=== PATIENT | female | born 1960 ===

== ENCOUNTER 2017-12-08 20:00 | Inpatient (IN) | payer OTHER ==
[2017-12-08] MEDS ORDERED: Sodium Chloride 0.9% 1,000 ML IV SCH (20:45)
--- NOTE | 2017-12-08 20:46 | ED PDOC ---
HPI: General Adult Time Seen by Provider: 12/08/17 20:24 Chief Complaint (Nursing): Lower Extremity Problem/Injury Chief Complaint (Provider): CP, LLE pain, facial droop Additional Complaint(s): Pt presents with multiples complaints: LLE pain and swelling X 2 days, no recent travel. Also c/o L sided chest pressure X 3 days, no radiation, no SOB. Also reports R facial droop last week X 2 days that resolved on its own, did not seek medical attention at that time. Pt recently had Eliquis (for which she took s/p RI) discontinued by PMD. Denies fever, palpitations. NIHSS Stroke Scale - Date/Time Evaluation Performed Date Performed: 12/08/17 Time Performed: 20:35 When Was NIHSS Performed: Baseline - How Severe is the Stroke Level of Consciousness: 0=Alert LOC to Questions: 0=Both comments correct LOC to commands: 0=Obeys both correctly Best Gaze: 0=Normal Visual: 0=No visual loss Facial: 0=Normal Motor Arm - Left: 0=No drift Motor Arm - Right: 0=No drift Motor Leg - Left: 0=No drift Motor Leg - Right: 0=No drift Limb Ataxia: 0=Absent Sensory: 0=Normal Best Language: 0=No aphasia Dysarthia: 0=Normal articulation Extinction & Inattention (Neglect): 0=Normal, no object Score: 0 rTPA Inclusion/Exclusion - Refusal of Treatment Patient Refused Treatment: No - Inclusion Criteria for Altepase Patient is 18 years or Older: Yes The Clinical Diagnosis of Ischemic Stroke That is Causing a Potentially Disabling Neurological Deficit: No Time of Onset is Well Established to be Less Than 270 Minute Before Treatment Would Begin: No Risk/Benefit Discussed With Patient/Family Member Present: No Past Medical History Reviewed: Nursing Documentation, Vital Signs Vital Signs: Last Vital Signs Temp 98.6 F 12/10/17 16:00 Pulse 94 H 12/10/17 16:00 Resp 12 12/10/17 16:00 BP 137/94 H 12/10/17 16:00 Pulse Ox 100 12/10/17 16:00 - Medical History PMH: CAD, HTN, Osteoporosis - Surgical History Surgical History: Hernia Repair - Family History Family History: States: Unknown Family Hx - Social History Current smoker - smoking cessation education provided: No Alcohol: None - Immunization History Hx Tetanus Toxoid Vaccination: Yes (2013) Hx Influenza Vaccination: No Hx Pneumococcal Vaccination: No - Home Medications Home Medications: Ambulatory Orders Medication Instructions Recorded Metoprolol Tartrate [Lopressor] 75 mg PO DAILY 12/08/17 Simvastatin [Zocor] 20 mg PO DAILY 12/08/17 - Allergies Allergies/Adverse Reactions: Allergies Allergy/AdvReac Type Severity Reaction Status Date / Time No Known Allergies Allergy Verified 12/08/17 20:06 Review of Systems Constitutional: Negative for: Fever, Chills Eyes: Negative for: Vision Change Cardiovascular: Positive for: Chest Pain. Negative for: Palpitations Respiratory: Negative for: Cough, Shortness of Breath Gastrointestinal: Negative for: Nausea, Vomiting, Abdominal Pain, Diarrhea Genitourinary Female: Negative for: Dysuria, Hematuria Musculoskeletal: Positive for: Leg Pain. Negative for: Back Pain Skin: Negative for: Rash, Lesions Neurological: Negative for: Weakness, Numbness, Incoordination, Change in Speech , Altered Mental Status, Headache, Dizziness Physical Exam - Reviewed Nursing Documentation Reviewed: Yes Vital Signs Reviewed: Yes - Physical Exam Appears: Positive for: Well, No Acute Distress Head Exam: Positive for: ATRAUMATIC, NORMAL INSPECTION Skin: Positive for: Normal Color, Warm, Dry Eye Exam: Positive for: Normal appearance, EOMI, PERRL Cardiovascular/Chest: Positive for: Regular Rate, Rhythm Respiratory: Positive for: Normal Breath Sounds. Negative for: Rales, Rhonchi, Wheezing Gastrointestinal/Abdominal: Positive for: Normal Exam Extremity: Positive for: Normal ROM, Tenderness (LLE), Calf Tenderness, Capillary Refill (<2 sec), Swelling (LLE). Negative for: Deformity Neurologic/Psych: Positive for: Alert, manager transplant II-XII, Oriented. Negative for: Motor/Sensory Deficits, Aphasia, Facial Droop - Laboratory Results Result Diagrams: 12/10/17 04:40 12/10/17 04:40 - ECG O2 Sat by Pulse Oximetry: 100 - Critical Care Total Time (In Min): 60 Medical Decision Making Medical Decision Makin yo female with CP, resolved R facial droop and LLE swelling and pain. - labs - EKG - CXR - CT head - Duplex ultrasound - Morphine Accession No. : [id number] Patient Name / ID : ESTHER VEGA / [id number] Exam Date : 12/08/2017 21:07:54 ( Approved ) Study Comment : Sex / Age : Creator : anabelle clau Dictator : Mindy Mancia MD Missile Inspector Preflight : Wire Roller : Mindy Mancia MD Approver2 : Report Date : 12/08/2017 21:17:21 My Comment : HISTORY: Chest pain COMPARISON: No prior. FINDINGS: LUNGS: The lungs are well inflated and clear. PLEURA: No significant pleural effusion identified, no pneumothorax apparent. CARDIOVASCULAR: The heart is normal in size. OSSEOUS STRUCTURES: No significant abnormalities. VISUALIZED UPPER ABDOMEN: Normal. OTHER FINDINGS: None. IMPRESSION: No active pulmonary disease. Accession No. : [id number] Patient Name / ID : ESTHER VEGA / [id number] Exam Date : 12/08/2017 21:23:47 ( Approved ) Study Comment : Sex / Age : Creator : ERIKA REYES MD Dictator : Missile Inspector Preflight : Wire Roller : ERIKA REYES MD Approver2 : Report Date : 12/08/2017 22:14:00 My Comment : [facility] Division of Radiology [address] [place] [address] Tel. no. Patient Name: GARY SANTANA Pt. Address: [address] [place] [address] Rec #: [id number] [place] [address]: Payton RUVALCABA,Johana Maddox Pt CELL Order Location: APPLE : 1960 Female Age: 57 Order #: [id number] Reason for exam: R facial droop [address] Scan HEAD W/O CONTRAST Exam Date: 12/08/17 This imaging exam was performed at [facility] EXAM: CT Head Without Intravenous Contrast CLINICAL HISTORY: 57 years old, female; Signs and symptoms; Other: Rt facial droop; Additional info: R facial droop 6 days ago TECHNIQUE: Axial computed tomography images of the head/brain without intravenous contrast. All CT scans at this facility use one or more dose reduction techniques, viz.: automated exposure control; ma/kV adjustment per patient size (including targeted exams where dose is matched to indication; i.e. head); or iterative reconstruction technique. Coronal and sagittal reformatted images were created and reviewed. COMPARISON: CT - HEAD W/O CONTRAST 2015-03-29 16:07 FINDINGS: Brain: No hemorrhage. No significant white matter disease. No edema. Ventricles: No hydrocephalus. Bones: Skull is intact. Sinuses: No acute sinusitis. Mastoid air cells: No mastoid effusion. IMPRESSION: No CT evidence of acute intracranial abnormality. Correlate clinically. Followup as warranted. Dictated By: Erika Reyes MD Dictated Date/Time: 12/08/172213 Signed By: Erika Reyes Date Signed: 2213 Transcribed By: MARY Transcribe Date/Time : 12/08/172213 CHERYL/NEAL Accession No. : [id number] Patient Name / ID : ESTHER VEGA / [id number] Exam Date : 12/08/2017 21:29:11 ( Approved ) Study Comment : Sex / Age : F / 57Y Creator : ERIKA REYES MD Dictator : Missile Inspector Preflight : Wire Roller : ERIKA REYES MD Approver2 : Report Date : 12/08/2017 22:08:00 My Comment : [facility] Division of Radiology [address] [place] [address] Tel. no. Patient Name: GARY SANTANA Pt. Address: [address] [place] [address] Rec #: [id number] [place] [address]: Johana Cain MD Pt CELL Order Location: [facility] : 1960 Female Age: 57 Order #: [id number] Reason for exam: LLE swelling/pain Ultrasound DUPLEX LOWER EXTRM VEIN LEFT Exam Date: 12/08/17 This imaging exam was performed at [facility] ADDENDUM Addendum created by Erika Reyes MD on 12/08/2017 10:33:28 PM EDT Spoke with Johana Medina on 12/08/2017 10:27 PM EDT. Initial report created on 12/08/2017 10:08:24 PM EDT EXAM: US Duplex Left Lower Extremity Veins CLINICAL HISTORY: 57 years old, female; Pain; Leg, lower; Left; Additional info: Lle swelling/pain TECHNIQUE: Real-time duplex ultrasound scan of the left lower extremity veins integrating B-mode two-dimensional vascular structure, Doppler spectral analysis, color flow Doppler imaging and compression. COMPARISON: No relevant prior studies available. FINDINGS: Deep veins: No DVT in the visualized common femoral or femoral veins. Thrombus visualized in the popliteal vein which is noncompressible. No color or Doppler flow demonstrated in the popliteal and posterior tibial veins. IMPRESSION: Positive left deep venous thrombosis. Addendum Dictated By: Erika Reyes Addendum Dictated Date Time:12/08/17 Addendum Signed by:Erika Reyes Addendum signed Date Time: 12/08/172232 Addendum Transcribed By: MARY Addendum Transcribed Date Time: 12/08/17 LUIS MD/NEAL EXAM: US Duplex Left Lower Extremity Veins CLINICAL HISTORY: 57 years old, female; Pain; Leg, lower; Left; Additional info: Lle swelling/pain TECHNIQUE: Real-time duplex ultrasound scan of the left lower extremity veins integrating B-mode two-dimensional vascular structure, Doppler spectral analysis, color flow Doppler imaging and compression. COMPARISON: No relevant prior studies available. FINDINGS: Deep veins: No DVT in the visualized common femoral or femoral veins. Thrombus visualized in the popliteal vein which is noncompressible. No color or Doppler flow demonstrated in the popliteal and posterior tibial veins. IMPRESSION: Positive left deep venous thrombosis. Dictated By: Erika Reyes MD Dictated Date/Time: 12/08/172207 Signed By: Erika Reyes Date Signed: 2207 Transcribed By: MARY Transcribe Date/Time : 12/08/172207 CHERYL/NEAL Accession No. : [id number] Patient Name / ID : ESTHER VEGA / [id number] Exam Date : 12/08/2017 22:19:44 ( Approved ) Study Comment : Sex / Age : F / 57Y Creator : JADE MCDOWELL Dictator : Missile Inspector Preflight : Wire Roller : JADE MCDOWELL Approver2 : Report Date : 12/08/2017 23:06:00 My Comment : [facility] Division of Radiology [address] [place] [address] Tel. no. Patient Name: GARY SANTANA Pt. Address: [address] [place] [address] Rec #: [id number] [place] [address]: Johana Cain MD Pt CELL Order Location: [facility] : 1960 Female Age: 57 Order #: [id number] Reason for exam: CP CT Scan ANGIO CHEST PE PROTOCOL Exam Date: 12/08/17 This imaging exam was performed at [facility] ADDENDUM Addendum created by Jade Mcdowell MD on 12/08/2017 11:20:24 PM EDT THIS REPORT CONTAINS FINDINGS THAT MAY BE CRITICAL TO PATIENT CARE. The findings were verbally communicaated via telephone conference with Johana Cain at 11:20 PM EDT on 12/08/2017. The findings were acknowledged and understood. Initial report created on 12/08/2017 11:06:45 PM EDT EXAM: CT Angiography Chest With Intravenous Contrast CLINICAL HISTORY: 57 years old, female; Pain; Chest pain; Type not specified; Additional info: Cp TECHNIQUE: Axial computed tomographic angiography images of the chest with intravenous contrast using pulmonary embolism protocol. All CT scans at this facility use one or more dose reduction techniques, viz.: automated exposure control; ma/kV adjustment per patient size (including targeted exams where dose is matched to indication; i.e. head); or iterative reconstruction technique. MIP reconstructed images were created and reviewed. Coronal and sagittal reformatted images were created and reviewed. CONTRAST: 90 mL of [id number] administered intravenously. COMPARISON: No relevant prior studies available. FINDINGS: Pulmonary arteries: There are filling defects in the bilateral upper and lower lobe pulmonary arteries consistent with pulmonary emboli. Aorta: No acute findings. No thoracic aortic aneurysm. Lungs: There is minimal bibasilar atelectasis or fibrosis. Mild fibrotic changes in the lung apices. No focal consolidation. Pleural space: Unremarkable. No significant effusion. No pneumothorax. Heart: Unremarkable. No cardiomegaly. No significant pericardial effusion. No evidence of RV dysfunction. Bones/joints: Degenerative changes in the spine. No acute fracture. No dislocation. Soft tissues: Calcified bilateral breast implants. Lymph nodes: Unremarkable. No enlarged lymph nodes. IMPRESSION: Bilateral pulmonary emboli. Addendum Dictated By: Jade Mcdowell MD Addendum Dictated Date Time:12/08/17 Addendum Signed by:Jade Mcdowell MD Addendum signed Date Time: 12/08/172319 Addendum Transcribed By: MARY Addendum Transcribed Date Time: 12/08/17 RHONDA/NEAL EXAM: CT Angiography Chest With Intravenous Contrast CLINICAL HISTORY: 57 years old, female; Pain; Chest pain; Type not specified; Additional info: Cp TECHNIQUE: Axial computed tomographic angiography images of the chest with intravenous contrast using pulmonary embolism protocol. All CT scans at this facility use one or more dose reduction techniques, viz.: automated exposure control; ma/kV adjustment per patient size (including targeted exams where dose is matched to indication; i.e. head); or iterative reconstruction technique. MIP reconstructed images were created and reviewed. Coronal and sagittal reformatted images were created and reviewed. CONTRAST: 90 mL of [id number] administered intravenously. COMPARISON: No relevant prior studies available. FINDINGS: Pulmonary arteries: There are filling defects in the bilateral upper and lower lobe pulmonary arteries consistent with pulmonary emboli. Aorta: No acute findings. No thoracic aortic aneurysm. Lungs: There is minimal bibasilar atelectasis or fibrosis. Mild fibrotic changes in the lung apices. No focal consolidation. Pleural space: Unremarkable. No significant effusion. No pneumothorax. Heart: Unremarkable. No cardiomegaly. No significant pericardial effusion. No evidence of RV dysfunction. Bones/joints: Degenerative changes in the spine. No acute fracture. No dislocation. Soft tissues: Calcified bilateral breast implants. Lymph nodes: Unremarkable. No enlarged lymph nodes. IMPRESSION: Bilateral pulmonary emboli. Dictated By: Jade Mcdowell MD Dictated Date/Time: 12/08/172305 Signed By: Jade Cleary MD Date Signed: 2305 Transcribed By: MARY Transcribe Date/Time : 12/08/172305 RHONDA/NEAL Disposition - Clinical Impression Clinical Impression: Bilateral pulmonary embolism, DVT (deep venous thrombosis), TIA (transient ischemic attack) - Disposition Disposition Time: 23:22 Condition: SERIOUS - Pt Status Changed To: Hospital Disposition Of: Inpatient - Admit Certification Admit to Inpatient:: After my assessment, the patient will require hospitalization for at least two midnights. This is because of the severity of symptoms shown, intensity of services needed, and/or the medical risk in this patient being treated as an outpatient. - POA Present On Arrival: Deep Vein Thrombosis / PE
[2017-12-08 20:56] LABS: BASO # 0.1 K/uL (0.0-0.2); BASO % 0.8 % (0.0-2.0); EOS # 0.3 K/uL (0.0-0.7); EOS % 3.9 % (0.0-4.0); HEMOGLOBIN 13.9 g/dL (12.0-16.0); LYMPH # 3.1 K/uL (1.0-4.3); LYMPH % 45.2 % (20.0-40.0); MEAN CORPUSCULAR HEMOGLOBIN 32.2 pg (27.0-31.0); MEAN CORPUSCULAR HGB CONC 34.3 g/dL (33.0-37.0); MEAN PLATELET VOLUME 7.7 fl (7.2-11.7); MONO # 0.6 K/uL (0.0-0.8); MONO % 8.9 % (0.0-10.0); NEUT # 2.8 K/uL (1.8-7.0); NEUT % 41.2 % (50.0-75.0); NRBC % 0.3 % (0.0-0.0); RBC 4.32 Mil/uL (3.80-5.20); RED CELL DISTRIBUTION WIDTH 13.4 % (11.5-14.5); WHITE BLOOD COUNT 6.9 K/uL (4.8-10.8)
[2017-12-08 21:06] LABS: ALB/GLOB RATIO 1.2 (1.0-2.1); ALT/SGPT 38 U/L (9-52); AST/SGOT 25 U/L (14-36); BLOOD UREA NITROGEN 20 mg/dl (7-17); CALCIUM 9.4 mg/dL (8.4-10.2); GFR AFRICAN-AMERICAN > 60; GFR NON-AFRICAN AMERICAN > 60; HDL CHOLESTEROL 56 MG/DL (30-70)
[2017-12-08 21:13] LABS: PROTHROMBIN TIME 10.9 Seconds (9.8-13.1)
[2017-12-08 21:14] LABS: PARTIAL THROMBOPLASTIN TIME 27.6 Seconds (25.6-37.1)
[2017-12-08 21:18] LABS: LDL CHOLESTEROL 99 mg/dL (0-129)
[2017-12-08 21:29] LABS: SQUAMOUS EPITHIAL 1 /hpf (0-5); URINE BILIRUBIN NEGATIVE (NEGATIVE); URINE BLOOD NEGATIVE (NEGATIVE); URINE CLARITY CLEAR (Clear); URINE COLOR STRAW (YELLOW); URINE GLUCOSE (UA) NEG (Normal); URINE LEUKOCYTE ESTERASE NEG Leu/uL (Negative); URINE PROTEIN NEGATIVE (NEGATIVE); URINE UROBILINOGEN 0.2-1.0 mg/dL (0.2-1.0)
[2017-12-08] MEDS ORDERED: Iodixanol 320 MG/ML 100 ML BOTTLE IV ONE (22:06)
[2017-12-08] MEDS ORDERED: Sodium Chloride 0.9% 50 ML IV ONE (22:06)
--- NOTE | 2017-12-08 22:08 | US ---
EXAM: US Duplex Left Lower Extremity Veins CLINICAL HISTORY: 57 years old, female; Pain; Leg, lower; Left; Additional info: Lle swelling/pain TECHNIQUE: Real-time duplex ultrasound scan of the left lower extremity veins integrating B-mode two-dimensional vascular structure, Doppler spectral analysis, color flow Doppler imaging and compression. COMPARISON: No relevant prior studies available. FINDINGS: Deep veins: No DVT in the visualized common femoral or femoral veins. Thrombus visualized in the popliteal vein which is noncompressible. No color or Doppler flow demonstrated in the popliteal and posterior tibial veins. IMPRESSION: Positive left deep venous thrombosis.
--- NOTE | 2017-12-08 22:15 | CT ---
EXAM: CT Head Without Intravenous Contrast CLINICAL HISTORY: 57 years old, female; Signs and symptoms; Other: Rt facial droop; Additional info: R facial droop 6 days ago TECHNIQUE: Axial computed tomography images of the head/brain without intravenous contrast. All CT scans at this facility use one or more dose reduction techniques, viz.: automated exposure control; ma/kV adjustment per patient size (including targeted exams where dose is matched to indication; i.e. head); or iterative reconstruction technique. Coronal and sagittal reformatted images were created and reviewed. COMPARISON: CT - HEAD W/O CONTRAST 2015-03-29 16:07 FINDINGS: Brain: No hemorrhage. No significant white matter disease. No edema. Ventricles: No hydrocephalus. Bones: Skull is intact. Sinuses: No acute sinusitis. Mastoid air cells: No mastoid effusion. IMPRESSION: No CT evidence of acute intracranial abnormality. Correlate clinically. Followup as warranted.
--- NOTE | 2017-12-08 23:06 | CT ---
EXAM: CT Angiography Chest With Intravenous Contrast CLINICAL HISTORY: 57 years old, female; Pain; Chest pain; Type not specified; Additional info: Cp TECHNIQUE: Axial computed tomographic angiography images of the chest with intravenous contrast using pulmonary embolism protocol. All CT scans at this facility use one or more dose reduction techniques, viz.: automated exposure control; ma/kV adjustment per patient size (including targeted exams where dose is matched to indication; i.e. head); or iterative reconstruction technique. MIP reconstructed images were created and reviewed. Coronal and sagittal reformatted images were created and reviewed. CONTRAST: 90 mL of [id number] administered intravenously. COMPARISON: No relevant prior studies available. FINDINGS: Pulmonary arteries: There are filling defects in the bilateral upper and lower lobe pulmonary arteries consistent with pulmonary emboli. Aorta: No acute findings. No thoracic aortic aneurysm. Lungs: There is minimal bibasilar atelectasis or fibrosis. Mild fibrotic changes in the lung apices. No focal consolidation. Pleural space: Unremarkable. No significant effusion. No pneumothorax. Heart: Unremarkable. No cardiomegaly. No significant pericardial effusion. No evidence of RV dysfunction. Bones/joints: Degenerative changes in the spine. No acute fracture. No dislocation. Soft tissues: Calcified bilateral breast implants. Lymph nodes: Unremarkable. No enlarged lymph nodes. IMPRESSION: Bilateral pulmonary emboli.
--- NOTE | 2017-12-08 23:44 | CP.PCM.CON ---
History of Present Illness - History of Present Illness History of Present Illness: Attending: Kerwin Mills MD PMD: Ada Randhawa MD Reason for consult: Critical Care Management Chief Complaint: Left lower extremity pain/ Chest pain /Dizziness The patient was seen and examined in the ED with her daughter present HPI: The hx is obtained from the patient and after review of the medical records. She is a 57 years old female with hx of HTN, DVT of left lower extremity October 2016 and UT in September 2016. She stopped taking Eliquis one month ago. She comes with 4 days of persisting dizziness and pain to the medial left upper thigh with 2 days of worsening of the pain and swelling of the posterior left thigh. She also referred 3-4 days of mid sternal chest pain with SOB no radiation nor relation with exertion . She refers right facial weakness with dysarthria 2 weeks ago which resolved after 2 days. No weakness to the extremities. Here in the ED her NIHSS was zero. 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 absent: Anorexia, Chills, Fatigue, Fever - EENT Eyes: Requires Corrective Lenses. absent: Floaters, Itchy Eyes, Photophobia, Sees Flashes Ears: absent: Decreased Hearing, Ear Discharge, Ear Pain, Tinnitus Nose/Mouth/Throat: absent: Epistaxis, Nasal Congestion, Nasal Discharge, Sinus Pain, Sinus Pressure - Cardiovascular Cardiovascular: Chest Pain, Dyspnea Additional comments: left leg swelling - Respiratory Respiratory: Dyspnea. absent: Cough, Wheezing, Stridor, Chest Congestion - Gastrointestinal Gastrointestinal: absent: Abdominal Pain, Constipation, Diarrhea, Nausea, Vomiting - Genitourinary Genitourinary: Urinary Frequency. absent: Dysuria, Flank Pain - Musculoskeletal Musculoskeletal: Arthralgias. absent: Back Pain, Muscle Weakness - Integumentary Integumentary: Swelling. absent: Pruritus, Rash, Skin Ulcer, Sores, Striae - Neurological Neurological: Dizziness, Headaches. absent: Confusion, Focal Weakness, Weakness - Psychiatric Psychiatric: Anxiety, Depression. absent: Panic Attacks - Endocrine Endocrine: absent: Palpitations, Polydipsia, Polyphagia, Polyuria - Hematologic/Lymphatic Hematologic: absent: Easy Bleeding, Easy Bruising Past Patient History - Past Medical History & Family History Past Medical History?: Yes - Past Social History Smoking Status: Heavy Smoker > 10 Cigarettes Daily Chewing Tobacco Use: No Cigar Use: No Alcohol: Occasional Home Situation {Lives}: With Family - CARDIAC Hx Hypercholesterolemia: Yes Hx Hypertension: Yes - PULMONARY Hx Respiratory Disorders: No - NEUROLOGICAL Hx Neurological Disorder: No - RENAL Hx Chronic Kidney Disease: No - ENDOCRINE/METABOLIC Hx Endocrine Disorders: No - HEMATOLOGICAL/ONCOLOGICAL Other/Comment: Left leg DVT - INTEGUMENTARY Hx Cellulitis: Yes (2013 s/p fall) - MUSCULOSKELETAL/RHEUMATOLOGICAL Hx Back Pain: Yes Hx Osteoporosis: Yes - GASTROINTESTINAL Hx Gastrointestinal Disorders: No - GENITOURINARY/GYNECOLOGICAL Hx Genitourinary Disorders: No - PSYCHIATRIC Hx Anxiety: Yes Hx Depression: Yes Hx Substance Use: No - SURGICAL HISTORY Hx Herniorrhaphy: Yes (left Hernia repair) Hx Hysterectomy: Yes Other/Comment: bilateral breast implant - ANESTHESIA Hx Anesthesia: Yes Hx Anesthesia Reactions: No Meds Allergies/Adverse Reactions: Allergies Allergy/AdvReac Type Severity Reaction Status Date / Time No Known Allergies Allergy Verified 12/08/17 20:06 - Medications Medications: Current Medications Sodium Chloride (Sodium Chloride 0.9%) 1,000 mls @ 100 mls/hr IV .Q10H [facility] Last Admin: 12/08/17 20:58 Dose: 100 mls/hr Heparin Sodium/Dextrose (Heparin 25,000 Units/250ml In D5w) 25,000 units in 250 mls @ 14 mls/hr IV .[id number] [facility] PRN Reason: Protocol Physical Exam - Constitutional Appears: No Acute Distress - Head Exam Head Exam: ATRAUMATIC, NORMAL INSPECTION, NORMOCEPHALIC - Eye Exam Eye Exam: EOMI, Normal appearance Pupil Exam: NORMAL ACCOMODATION, PERRL - ENT Exam ENT Exam: Mucous Membranes Moist, Normal Exam, Normal External Ear Exam - Neck Exam Neck exam: Positive for: Full Rom, Normal Inspection. Negative for: Lymphadenopathy, Tenderness - Respiratory Exam Respiratory Exam: Rales. absent: Rhonchi, Wheezes Additional comments: mild rales at left base - Cardiovascular Exam Cardiovascular Exam: REGULAR RHYTHM, RRR, +S1, +S2. absent: Gallop, JVD - GI/Abdominal Exam Additional comments: Obese, Soft , mild tenderness at the LLQ, +ve bowel sounds. No guarding nor rebound tenderness. - Rectal Exam Rectal Exam: Deferred - Extremities Exam Additional comments: Posterior left leg swollen, tender to palpation. Pain to the medial upper left thigh on palpation. - Back Exam Back exam: NORMAL INSPECTION. absent: CVA tenderness (L), CVA tenderness (R) - Neurological Exam Neurological exam: Alert, CN II-XII Intact, Oriented x3, Reflexes Normal Additional comments: No facial droop. motor strength 5/5 at both upper extremities and the right lower extremity. Pain to the left lower extremity - Psychiatric Exam Psychiatric exam: Normal Affect, Normal Mood - Skin Skin Exam: Dry, Normal Color, Warm Results - Vital Signs Recent Vital Signs: Last Vital Signs Temp 97.8 F 12/08/17 23:40 Pulse 70 12/08/17 23:40 Resp 18 12/08/17 23:40 BP 141/77 12/08/17 23:40 Pulse Ox 96 12/08/17 23:40 - Labs Result Diagrams: 12/08/17 20:52 12/08/17 20:52 Labs: Laboratory Results - last 24 hr 12/08/17 12/08/17 12/08/17 20:47 20:52 20:52 WBC 6.9 RBC 4.32 Hgb 13.9 Hct 40.6 MCV 94.0 MCH 32.2 H MCHC 34.3 RDW 13.4 Plt Count 189 MPV 7.7 Neut % (Auto) 41.2 L Lymph % (Auto) 45.2 H [place] % (Auto) 8.9 Eos % (Auto) 3.9 Baso % (Auto) 0.8 Neut # (Auto) 2.8 Lymph # (Auto) 3.1 [place] # (Auto) 0.6 Eos # (Auto) 0.3 Baso # (Auto) 0.1 PT INR APTT D-Dimer, Quantitative Sodium 142 Potassium 3.6 Chloride 104 Carbon Dioxide 23 Anion Gap 19 BUN 20 H Creatinine 0.6 L Est GFR ( Amer) > 60 Est GFR (Non-Af Amer) > 60 POC Glucose (mg/dL) Random Glucose 92 Calcium 9.4 Total Bilirubin 0.5 AST 25 ALT 38 Alkaline Phosphatase 97 Troponin I < 0.0120 Total Protein 7.4 Albumin 4.0 Globulin 3.4 Albumin/Globulin Ratio 1.2 Triglycerides 169 H Cholesterol 183 LDL Cholesterol Direct 99 HDL Cholesterol 56 Urine Color Urine Clarity Urine pH Ur Specific [place] Urine Protein Urine Glucose (UA) Urine Ketones Urine Blood Urine Nitrate Urine Bilirubin Urine Urobilinogen Ur Leukocyte Esterase Urine RBC (Auto) Urine Microscopic WBC Ur Squamous Epith Cells Blood Type O POSITIVE Antibody Screen Negative BBK History Checked No verified bt 12/08/17 12/08/17 12/08/17 20:52 21:12 21:16 WBC RBC Hgb Hct MCV MCH MCHC RDW Plt Count MPV Neut % (Auto) Lymph % (Auto) [place] % (Auto) Eos % (Auto) Baso % (Auto) Neut # (Auto) Lymph # (Auto) [place] # (Auto) Eos # (Auto) Baso # (Auto) PT 10.9 INR 1.0 APTT 27.6 D-Dimer, Quantitative 2644 H Sodium Potassium Chloride Carbon Dioxide Anion Gap BUN Creatinine Est GFR ( Amer) Est GFR (Non-Af Amer) POC Glucose (mg/dL) 88 Random Glucose Calcium Total Bilirubin AST ALT Alkaline Phosphatase Troponin I Total Protein Albumin Globulin Albumin/Globulin Ratio Triglycerides Cholesterol LDL Cholesterol Direct HDL Cholesterol Urine Color Straw Urine Clarity Clear Urine pH 7.0 Ur Specific [place] 1.008 Urine Protein Negative Urine Glucose (UA) Neg Urine Ketones Negative Urine Blood Negative Urine Nitrate Negative Urine Bilirubin Negative Urine Urobilinogen 0.2-1.0 Ur Leukocyte Esterase Neg Urine RBC (Auto) < 1 Urine Microscopic WBC < 1 Ur Squamous Epith Cells 1 Blood Type Antibody Screen BBK History Checked - Impressions Impression: NSR 69/min - Imaging and Cardiology CT scan - head Status: Image reviewed by me, Report reviewed by me Additional comment: EXAM: CT Head Without Intravenous Contrast FINDINGS: Brain: No hemorrhage. No significant white matter disease. No edema. Ventricles: No hydrocephalus. Bones: Skull is intact. Sinuses: No acute sinusitis. Mastoid air cells: No mastoid effusion. IMPRESSION: No CT evidence of acute intracranial abnormality. Correlate clinically. Followup as warranted. Left Lower Extremity US Status: Report reviewed by me Additional comment: EXAM: US Duplex Left Lower Extremity Veins FINDINGS: Deep veins: No DVT in the visualized common femoral or femoral veins. Thrombus visualized in the popliteal vein which is noncompressible. No color or Doppler flow demonstrated in the popliteal and posterior tibial veins. IMPRESSION: Positive left deep venous thrombosis CTA Chest Status: Report reviewed by me Additional comment: EXAM: CT Angiography Chest With Intravenous Contrast FINDINGS: Pulmonary arteries: There are filling defects in the bilateral upper and lower lobe pulmonary arteries consistent with pulmonary emboli. Aorta: No acute findings. No thoracic aortic aneurysm. Lungs: There is minimal bibasilar atelectasis or fibrosis. Mild fibrotic changes in the lung apices. No focal consolidation. Pleural space: Unremarkable. No significant effusion. No pneumothorax. Heart: Unremarkable. No cardiomegaly. No significant pericardial effusion. No evidence of RV dysfunction. Bones/joints: Degenerative changes in the spine. No acute fracture. No dislocation. Soft tissues: Calcified bilateral breast implants. Lymph nodes: Unremarkable. No enlarged lymph nodes. IMPRESSION: Bilateral pulmonary emboli. Chest x-ray Status: Image reviewed by me Additional comment: Increased cardiovascular markings Bibasal Atelectasis Assessment & Plan - Assessment and Plan (Free Text) Assessment: #. Left DVT #. Bilateral PE #. HTN #. Dehydration #. TIA Plan: 57 years old female with hx of HTN, DVT of left lower extremity October 2016 and UT in September 2016. She stopped taking Eliquis one month ago. She comes with persistent dizziness, pains to the left leg and thigh, chest pain and hx of right facial droop with dysarthria two weeks ago lasting 2 days. #. 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 Consider IVC filter #. HTN - Metoprolol #. TIA with possible CVA - Consult Dr Gerard Neurologist - MRI brain - CTA head and Neck - Consider ECHO with bubble study - ASA - Statin #. Dehydration - IV Fluid - follow Renal labs #. DVT prophylaxis. Patient is on Heparin #. Code Status: Full - Date & Time Date: 12/08/17 Time: 23:44
[2017-12-09] MEDS: Heparin 25,000units in D5W 25,000 UNITS/250 ML BAG IV SCH ×2 (00:22→22:53)
[2017-12-09 00:58] LABS: ABG ALLEN TEST YES; ARTERIAL BLOOD GAS HCO3 25.9 mmol/L (21-28); ARTERIAL BLOOD GAS HEMOGLOBIN 13.9 g/dL (11.7-17.4); ARTERIAL BLOOD GAS O2 CAPACITY 18.5 mL/dL (16-24); ARTERIAL BLOOD GAS O2 CONTENT 17.9 ML/dL (15-23); ARTERIAL BLOOD GAS O2 SAT 96.6 % (95-98); ARTERIAL BLOOD GAS PCO2 43 mm/Hg (35-45); ARTERIAL BLOOD GAS PO2 69 mm/Hg (80-100); ARTERIAL BLOOD GAS TCO2 27.9 mmol/L (22-28)
[2017-12-09 02:43] VITALS: BMI 33.7
[2017-12-09 06:42] LABS: BASO % 0.4 % (0.0-2.0); EOS # 0.3 K/uL (0.0-0.7); EOS % 5.4 % (0.0-4.0); HEMOGLOBIN 13.5 g/dL (12.0-16.0); LYMPH # 3.3 K/uL (1.0-4.3); MEAN CELL VOLUME 93.6 fl (81.0-99.0); MEAN CORPUSCULAR HEMOGLOBIN 32.5 pg (27.0-31.0); MEAN CORPUSCULAR HGB CONC 34.8 g/dL (33.0-37.0); MONO # 0.5 K/uL (0.0-0.8); MONO % 8.5 % (0.0-10.0); NEUT # 1.8 K/uL (1.8-7.0); NEUT % 30.7 % (50.0-75.0); NRBC % 0.1 % (0.0-0.0); RBC 4.14 Mil/uL (3.80-5.20); RED CELL DISTRIBUTION WIDTH 13.5 % (11.5-14.5)
[2017-12-09 07:01] LABS: BLOOD UREA NITROGEN 15 mg/dl (7-17); CALCIUM 8.7 mg/dL (8.4-10.2); GFR AFRICAN-AMERICAN > 60; GFR NON-AFRICAN AMERICAN > 60
--- NOTE | 2017-12-09 08:11 | CP.CCUPN ---
CCU Subjective - Physician Review Events Since Last Encounter (Free Text): 12/09/17 08:09 Patient awake, no distress, no pressors, no fever, follow commands, on O2 supplement, events reviewed CCU Objective - Vital Signs / Intake & Output Vital Signs (Last 4 hours): Vital Signs Temp Pulse Resp BP Pulse Ox 12/09/17 08:00 97.8 F 69 18 115/71 97 12/09/17 06:00 63 18 109/67 96 Intake and Output (Last 8hrs): Intake & Output 12/08/17 12/09/17 12/09/17 22:59 06:59 14:59 Intake Total 70 Output Total 475 Balance -405 Weight 170 lb 197 lb 9.6 oz Intake: IV 70 Output: Urine 475 Urine, Voided 475 - Physical Exam Head: Positive for: Atraumatic, Normocephalic Pupils: Positive for: PERRL Extroacular Muscles: Positive for: EOMI Conjunctiva: Positive for: Normal Mouth: Positive for: Dry Nose (External): Positive for: Atraumatic Neck: Positive for: Normal Range of Motion Respiratory/Chest: Positive for: Clear to Auscultation Cardiovascular: Positive for: Regular Rate and Rhythm Abdomen: Positive for: Normal Bowel Sounds Upper Extremity: Positive for: Normal Inspection Lower Extremity: Positive for: Normal Inspection Neurological: Positive for: GCS=15, Speech Normal Psychiatric: Positive for: Alert, Oriented x 3 - Medications Active Medications: Active Medications Generic Name Dose Route Start Last Admin Trade Name Freq PRN Reason Stop Dose Admin Acetaminophen 650 mg 12/09/17 00:53 Tylenol 325mg Tab PO Q6 PRN Pain, Mild (1-3) Aspirin 81 mg 12/09/17 09:00 Aspirin Chewable PO DAILY JOSEPH Atorvastatin Calcium 10 mg 12/09/17 09:00 Lipitor PO DAILY JOSEPH Sodium Chloride 1,000 mls @ 100 mls/hr 12/08/17 20:45 12/08/17 20:58 Sodium Chloride 0.9% IV 100 mls/hr .Q10H JOSEPH Administration Heparin Sodium/Dextrose 25,000 units in 250 mls @ 14 mls/hr 12/08/17 23:15 00:22 Heparin 25,000 Units/250ml In D5w IV 14 mls/hr .[id number] JOSEPH Administration Protocol Metoprolol Tartrate 75 mg 12/09/17 09:00 Lopressor PO DAILY JOSEPH Morphine Sulfate 2 mg 12/09/17 00:52 Morphine IVP Q6 PRN Pain, moderate (4-7) - Patient Studies Lab Studies: Lab Studies 12/09/17 12/09/17 12/09/17 Range/Units 06:00 06:00 06:00 WBC 6.0 (4.8-10.8) K/uL RBC 4.14 (3.80-5.20) Mil/uL Hgb 13.5 (12.0-16.0) g/dL Hct 38.8 (34.0-47.0) % MCV 93.6 (81.0-99.0) fl MCH 32.5 H (27.0-31.0) pg MCHC 34.8 (33.0-37.0) g/dL RDW 13.5 (11.5-14.5) % Plt Count 172 (130-400) K/uL MPV 8.0 (7.2-11.7) fl Neut % (Auto) 30.7 L (50.0-75.0) % Lymph % (Auto) 55.0 H (20.0-40.0) % [place] % (Auto) 8.5 (0.0-10.0) % Eos % (Auto) 5.4 H (0.0-4.0) % Baso % (Auto) 0.4 (0.0-2.0) % Neut # (Auto) 1.8 (1.8-7.0) K/uL Lymph # (Auto) 3.3 (1.0-4.3) K/uL [place] # (Auto) 0.5 (0.0-0.8) K/uL Eos # (Auto) 0.3 (0.0-0.7) K/uL Baso # (Auto) 0.0 (0.0-0.2) K/uL PT (9.8-13.1) Seconds INR (0.9-1.2) APTT 159.9 H* D (25.6-37.1) Seconds D-Dimer, Quantitative (0-230) ng/mlDDU pCO2 (35-45) mm/Hg pO2 (80-100) mm/Hg HCO3 (21-28) mmol/L ABG pH (7.35-7.45) ABG Total CO2 (22-28) mmol/L ABG O2 Saturation (95-98) % ABG O2 Content (15-23) ML/dL ABG Base Excess (-2.0-3.0) mmol/L ABG Hemoglobin (11.7-17.4) g/dL ABG Carboxyhemoglobin (0.5-1.5) % POC ABG HHb (Measured) (0.0-5.0) % ABG Methemoglobin (0.0-3.0) % ABG O2 Capacity (16-24) mL/dL Fuentes Test A-a O2 Difference mm/Hg Hgb O2 Saturation (95.0-98.0) % FiO2 % Sodium 143 (132-148) mmol/l Potassium 3.5 L (3.6-5.0) MMOL/L Chloride 107 (98-107) mmol/L Carbon Dioxide 25 (22-30) mmol/L Anion Gap 15 (10-20) BUN 15 (7-17) mg/dl Creatinine 0.5 L (0.7-1.2) mg/dl Est GFR ( Amer) > 60 Est GFR (Non-Af Amer) > 60 POC Glucose (mg/dL) (65-110) mg/dL Random Glucose 120 H (65-105) mg/dL Calcium 8.7 (8.4-10.2) mg/dL Total Bilirubin (0.2-1.3) mg/dl AST (14-36) U/L ALT (9-52) U/L Alkaline Phosphatase (38-126) U/L Troponin I (0.00-0.120) ng/mL Total Protein (6.3-8.2) G/DL Albumin (3.5-5.0) g/dL Globulin (2.2-3.9) gm/dL Albumin/Globulin Ratio (1.0-2.1) Triglycerides (0-149) mg/DL Cholesterol (0-199) mg/dL LDL Cholesterol Direct (0-129) mg/dL HDL Cholesterol (30-70) MG/DL Urine Color (YELLOW) Urine Clarity (Clear) Urine pH (5.0-8.0) Ur Specific [place] (1.003-1.030) Urine Protein (NEGATIVE) mg/dL Urine Glucose (UA) (Normal) mg/dL Urine Ketones (NEGATIVE) mg/dL Urine Blood (NEGATIVE) Urine Nitrate (NEGATIVE) Urine Bilirubin (NEGATIVE) Urine Urobilinogen (0.2-1.0) mg/dL Ur Leukocyte Esterase (Negative) Truong/uL Urine RBC (Auto) (0-3) /hpf Urine Microscopic WBC (0-5) /hpf Ur Squamous Epith Cells (0-5) /hpf Blood Type Antibody Screen BBK History Checked 12/08/17 12/08/17 12/08/17 Range/Units 21:16 21:12 20:52 WBC (4.8-10.8) K/uL RBC (3.80-5.20) Mil/uL Hgb (12.0-16.0) g/dL Hct (34.0-47.0) % MCV (81.0-99.0) fl MCH (27.0-31.0) pg MCHC (33.0-37.0) g/dL RDW (11.5-14.5) % Plt Count (130-400) K/uL MPV (7.2-11.7) fl Neut % (Auto) (50.0-75.0) % Lymph % (Auto) (20.0-40.0) % [place] % (Auto) (0.0-10.0) % Eos % (Auto) (0.0-4.0) % Baso % (Auto) (0.0-2.0) % Neut # (Auto) (1.8-7.0) K/uL Lymph # (Auto) (1.0-4.3) K/uL [place] # (Auto) (0.0-0.8) K/uL Eos # (Auto) (0.0-0.7) K/uL Baso # (Auto) (0.0-0.2) K/uL PT 10.9 (9.8-13.1) Seconds INR 1.0 (0.9-1.2) APTT 27.6 (25.6-37.1) Seconds D-Dimer, Quantitative 2644 H (0-230) ng/mlDDU pCO2 (35-45) mm/Hg pO2 (80-100) mm/Hg HCO3 (21-28) mmol/L ABG pH (7.35-7.45) ABG Total CO2 (22-28) mmol/L ABG O2 Saturation (95-98) % ABG O2 Content (15-23) ML/dL ABG Base Excess (-2.0-3.0) mmol/L ABG Hemoglobin (11.7-17.4) g/dL ABG Carboxyhemoglobin (0.5-1.5) % POC ABG HHb (Measured) (0.0-5.0) % ABG Methemoglobin (0.0-3.0) % ABG O2 Capacity (16-24) mL/dL Fuentes Test A-a O2 Difference mm/Hg Hgb O2 Saturation (95.0-98.0) % FiO2 % Sodium (132-148) mmol/l Potassium (3.6-5.0) MMOL/L Chloride (98-107) mmol/L Carbon Dioxide (22-30) mmol/L Anion Gap (10-20) BUN (7-17) mg/dl Creatinine (0.7-1.2) mg/dl Est GFR ( Amer) Est GFR (Non-Af Amer) POC Glucose (mg/dL) 88 (65-110) mg/dL Random Glucose (65-105) mg/dL Calcium (8.4-10.2) mg/dL Total Bilirubin (0.2-1.3) mg/dl AST (14-36) U/L ALT (9-52) U/L Alkaline Phosphatase (38-126) U/L Troponin I (0.00-0.120) ng/mL Total Protein (6.3-8.2) G/DL Albumin (3.5-5.0) g/dL Globulin (2.2-3.9) gm/dL Albumin/Globulin Ratio (1.0-2.1) Triglycerides (0-149) mg/DL Cholesterol (0-199) mg/dL LDL Cholesterol Direct (0-129) mg/dL HDL Cholesterol (30-70) MG/DL Urine Color Straw (YELLOW) Urine Clarity Clear (Clear) Urine pH 7.0 (5.0-8.0) Ur Specific [place] 1.008 (1.003-1.030) Urine Protein Negative (NEGATIVE) mg/dL Urine Glucose (UA) Neg (Normal) mg/dL Urine Ketones Negative (NEGATIVE) mg/dL Urine Blood Negative (NEGATIVE) Urine Nitrate Negative (NEGATIVE) Urine Bilirubin Negative (NEGATIVE) Urine Urobilinogen 0.2-1.0 (0.2-1.0) mg/dL Ur Leukocyte Esterase Neg (Negative) Truong/uL Urine RBC (Auto) < 1 (0-3) /hpf Urine Microscopic WBC < 1 (0-5) /hpf Ur Squamous Epith Cells 1 (0-5) /hpf Blood Type Antibody Screen BBK History Checked 12/08/17 12/08/17 12/08/17 Range/Units 20:52 20:52 20:47 WBC 6.9 (4.8-10.8) K/uL RBC 4.32 (3.80-5.20) Mil/uL Hgb 13.9 (12.0-16.0) g/dL Hct 40.6 (34.0-47.0) % MCV 94.0 (81.0-99.0) fl MCH 32.2 H (27.0-31.0) pg MCHC 34.3 (33.0-37.0) g/dL RDW 13.4 (11.5-14.5) % Plt Count 189 (130-400) K/uL MPV 7.7 (7.2-11.7) fl Neut % (Auto) 41.2 L (50.0-75.0) % Lymph % (Auto) 45.2 H (20.0-40.0) % [place] % (Auto) 8.9 (0.0-10.0) % Eos % (Auto) 3.9 (0.0-4.0) % Baso % (Auto) 0.8 (0.0-2.0) % Neut # (Auto) 2.8 (1.8-7.0) K/uL Lymph # (Auto) 3.1 (1.0-4.3) K/uL [place] # (Auto) 0.6 (0.0-0.8) K/uL Eos # (Auto) 0.3 (0.0-0.7) K/uL Baso # (Auto) 0.1 (0.0-0.2) K/uL PT (9.8-13.1) Seconds INR (0.9-1.2) APTT (25.6-37.1) Seconds D-Dimer, Quantitative (0-230) ng/mlDDU pCO2 (35-45) mm/Hg pO2 (80-100) mm/Hg HCO3 (21-28) mmol/L ABG pH (7.35-7.45) ABG Total CO2 (22-28) mmol/L ABG O2 Saturation (95-98) % ABG O2 Content (15-23) ML/dL ABG Base Excess (-2.0-3.0) mmol/L ABG Hemoglobin (11.7-17.4) g/dL ABG Carboxyhemoglobin (0.5-1.5) % POC ABG HHb (Measured) (0.0-5.0) % ABG Methemoglobin (0.0-3.0) % ABG O2 Capacity (16-24) mL/dL Fuentes Test A-a O2 Difference mm/Hg Hgb O2 Saturation (95.0-98.0) % FiO2 % Sodium 142 (132-148) mmol/l Potassium 3.6 (3.6-5.0) MMOL/L Chloride 104 (98-107) mmol/L Carbon Dioxide 23 (22-30) mmol/L Anion Gap 19 (10-20) BUN 20 H (7-17) mg/dl Creatinine 0.6 L (0.7-1.2) mg/dl Est GFR ( Amer) > 60 Est GFR (Non-Af Amer) > 60 POC Glucose (mg/dL) (65-110) mg/dL Random Glucose 92 (65-105) mg/dL Calcium 9.4 (8.4-10.2) mg/dL Total Bilirubin 0.5 (0.2-1.3) mg/dl AST 25 (14-36) U/L ALT 38 (9-52) U/L Alkaline Phosphatase 97 (38-126) U/L Troponin I < 0.0120 (0.00-0.120) ng/mL Total Protein 7.4 (6.3-8.2) G/DL Albumin 4.0 (3.5-5.0) g/dL Globulin 3.4 (2.2-3.9) gm/dL Albumin/Globulin Ratio 1.2 (1.0-2.1) Triglycerides 169 H (0-149) mg/DL Cholesterol 183 (0-199) mg/dL LDL Cholesterol Direct 99 (0-129) mg/dL HDL Cholesterol 56 (30-70) MG/DL Urine Color (YELLOW) Urine Clarity (Clear) Urine pH (5.0-8.0) Ur Specific [place] (1.003-1.030) Urine Protein (NEGATIVE) mg/dL Urine Glucose (UA) (Normal) mg/dL Urine Ketones (NEGATIVE) mg/dL Urine Blood (NEGATIVE) Urine Nitrate (NEGATIVE) Urine Bilirubin (NEGATIVE) Urine Urobilinogen (0.2-1.0) mg/dL Ur Leukocyte Esterase (Negative) Truong/uL Urine RBC (Auto) (0-3) /hpf Urine Microscopic WBC (0-5) /hpf Ur Squamous Epith Cells (0-5) /hpf Blood Type O POSITIVE Antibody Screen Negative BBK History Checked No verified bt 12/08/17 Range/Units 00:56 WBC (4.8-10.8) K/uL RBC (3.80-5.20) Mil/uL Hgb (12.0-16.0) g/dL Hct (34.0-47.0) % MCV (81.0-99.0) fl MCH (27.0-31.0) pg MCHC (33.0-37.0) g/dL RDW (11.5-14.5) % Plt Count (130-400) K/uL MPV (7.2-11.7) fl Neut % (Auto) (50.0-75.0) % Lymph % (Auto) (20.0-40.0) % [place] % (Auto) (0.0-10.0) % Eos % (Auto) (0.0-4.0) % Baso % (Auto) (0.0-2.0) % Neut # (Auto) (1.8-7.0) K/uL Lymph # (Auto) (1.0-4.3) K/uL [place] # (Auto) (0.0-0.8) K/uL Eos # (Auto) (0.0-0.7) K/uL Baso # (Auto) (0.0-0.2) K/uL PT (9.8-13.1) Seconds INR (0.9-1.2) APTT (25.6-37.1) Seconds D-Dimer, Quantitative (0-230) ng/mlDDU pCO2 43 (35-45) mm/Hg pO2 69 L (80-100) mm/Hg HCO3 25.9 (21-28) mmol/L ABG pH 7.40 (7.35-7.45) ABG Total CO2 27.9 (22-28) mmol/L ABG O2 Saturation 96.6 (95-98) % ABG O2 Content 17.9 (15-23) ML/dL ABG Base Excess 1.4 (-2.0-3.0) mmol/L ABG Hemoglobin 13.9 (11.7-17.4) g/dL ABG Carboxyhemoglobin 2.9 H (0.5-1.5) % POC ABG HHb (Measured) 3.2 (0.0-5.0) % ABG Methemoglobin 2.3 (0.0-3.0) % ABG O2 Capacity 18.5 (16-24) mL/dL Fuentes Test Yes A-a O2 Difference 27.0 mm/Hg Hgb O2 Saturation 91.6 L (95.0-98.0) % FiO2 21.0 % Sodium (132-148) mmol/l Potassium (3.6-5.0) MMOL/L Chloride (98-107) mmol/L Carbon Dioxide (22-30) mmol/L Anion Gap (10-20) BUN (7-17) mg/dl Creatinine (0.7-1.2) mg/dl Est GFR ( Amer) Est GFR (Non-Af Amer) POC Glucose (mg/dL) (65-110) mg/dL Random Glucose (65-105) mg/dL Calcium (8.4-10.2) mg/dL Total Bilirubin (0.2-1.3) mg/dl AST (14-36) U/L ALT (9-52) U/L Alkaline Phosphatase (38-126) U/L Troponin I (0.00-0.120) ng/mL Total Protein (6.3-8.2) G/DL Albumin (3.5-5.0) g/dL Globulin (2.2-3.9) gm/dL Albumin/Globulin Ratio (1.0-2.1) Triglycerides (0-149) mg/DL Cholesterol (0-199) mg/dL LDL Cholesterol Direct (0-129) mg/dL HDL Cholesterol (30-70) MG/DL Urine Color (YELLOW) Urine Clarity (Clear) Urine pH (5.0-8.0) Ur Specific [place] (1.003-1.030) Urine Protein (NEGATIVE) mg/dL Urine Glucose (UA) (Normal) mg/dL Urine Ketones (NEGATIVE) mg/dL Urine Blood (NEGATIVE) Urine Nitrate (NEGATIVE) Urine Bilirubin (NEGATIVE) Urine Urobilinogen (0.2-1.0) mg/dL Ur Leukocyte Esterase (Negative) Truong/uL Urine RBC (Auto) (0-3) /hpf Urine Microscopic WBC (0-5) /hpf Ur Squamous Epith Cells (0-5) /hpf Blood Type Antibody Screen BBK History Checked Laboratory Results - last 24 hr 12/08/17 12/08/17 12/08/17 00:56 20:47 20:52 WBC 6.9 RBC 4.32 Hgb 13.9 Hct 40.6 MCV 94.0 MCH 32.2 H MCHC 34.3 RDW 13.4 Plt Count 189 MPV 7.7 Neut % (Auto) 41.2 L Lymph % (Auto) 45.2 H [place] % (Auto) 8.9 Eos % (Auto) 3.9 Baso % (Auto) 0.8 Neut # (Auto) 2.8 Lymph # (Auto) 3.1 [place] # (Auto) 0.6 Eos # (Auto) 0.3 Baso # (Auto) 0.1 PT INR APTT D-Dimer, Quantitative pCO2 43 pO2 69 L HCO3 25.9 ABG pH 7.40 ABG Total CO2 27.9 ABG O2 Saturation 96.6 ABG O2 Content 17.9 ABG Base Excess 1.4 ABG Hemoglobin 13.9 ABG Carboxyhemoglobin 2.9 H POC ABG HHb (Measured) 3.2 ABG Methemoglobin 2.3 ABG O2 Capacity 18.5 Fuentes Test Yes A-a O2 Difference 27.0 Hgb O2 Saturation 91.6 L FiO2 21.0 Sodium Potassium Chloride Carbon Dioxide Anion Gap BUN Creatinine Est GFR ( Amer) Est GFR (Non-Af Amer) POC Glucose (mg/dL) Random Glucose Calcium Total Bilirubin AST ALT Alkaline Phosphatase Troponin I Total Protein Albumin Globulin Albumin/Globulin Ratio Triglycerides Cholesterol LDL Cholesterol Direct HDL Cholesterol Urine Color Urine Clarity Urine pH Ur Specific [place] Urine Protein Urine Glucose (UA) Urine Ketones Urine Blood Urine Nitrate Urine Bilirubin Urine Urobilinogen Ur Leukocyte Esterase Urine RBC (Auto) Urine Microscopic WBC Ur Squamous Epith Cells Blood Type O POSITIVE Antibody Screen Negative BBK History Checked No verified bt 12/08/17 12/08/17 12/08/17 20:52 20:52 21:12 WBC RBC Hgb Hct MCV MCH MCHC RDW Plt Count MPV Neut % (Auto) Lymph % (Auto) [place] % (Auto) Eos % (Auto) Baso % (Auto) Neut # (Auto) Lymph # (Auto) [place] # (Auto) Eos # (Auto) Baso # (Auto) PT 10.9 INR 1.0 APTT 27.6 D-Dimer, Quantitative 2644 H pCO2 pO2 HCO3 ABG pH ABG Total CO2 ABG O2 Saturation ABG O2 Content ABG Base Excess ABG Hemoglobin ABG Carboxyhemoglobin POC ABG HHb (Measured) ABG Methemoglobin ABG O2 Capacity Fuentes Test A-a O2 Difference Hgb O2 Saturation FiO2 Sodium 142 Potassium 3.6 Chloride 104 Carbon Dioxide 23 Anion Gap 19 BUN 20 H Creatinine 0.6 L Est GFR ( Amer) > 60 Est GFR (Non-Af Amer) > 60 POC Glucose (mg/dL) 88 Random Glucose 92 Calcium 9.4 Total Bilirubin 0.5 AST 25 ALT 38 Alkaline Phosphatase 97 Troponin I < 0.0120 Total Protein 7.4 Albumin 4.0 Globulin 3.4 Albumin/Globulin Ratio 1.2 Triglycerides 169 H Cholesterol 183 LDL Cholesterol Direct 99 HDL Cholesterol 56 Urine Color Urine Clarity Urine pH Ur Specific [place] Urine Protein Urine Glucose (UA) Urine Ketones Urine Blood Urine Nitrate Urine Bilirubin Urine Urobilinogen Ur Leukocyte Esterase Urine RBC (Auto) Urine Microscopic WBC Ur Squamous Epith Cells Blood Type Antibody Screen BBK History Checked 12/08/17 12/09/17 12/09/17 21:16 06:00 06:00 WBC 6.0 RBC 4.14 Hgb 13.5 Hct 38.8 MCV 93.6 MCH 32.5 H MCHC 34.8 RDW 13.5 Plt Count 172 MPV 8.0 Neut % (Auto) 30.7 L Lymph % (Auto) 55.0 H [place] % (Auto) 8.5 Eos % (Auto) 5.4 H Baso % (Auto) 0.4 Neut # (Auto) 1.8 Lymph # (Auto) 3.3 [place] # (Auto) 0.5 Eos # (Auto) 0.3 Baso # (Auto) 0.0 PT INR APTT D-Dimer, Quantitative pCO2 pO2 HCO3 ABG pH ABG Total CO2 ABG O2 Saturation ABG O2 Content ABG Base Excess ABG Hemoglobin ABG Carboxyhemoglobin POC ABG HHb (Measured) ABG Methemoglobin ABG O2 Capacity Fuentes Test A-a O2 Difference Hgb O2 Saturation FiO2 Sodium 143 Potassium 3.5 L Chloride 107 Carbon Dioxide 25 Anion Gap 15 BUN 15 Creatinine 0.5 L Est GFR ( Amer) > 60 Est GFR (Non-Af Amer) > 60 POC Glucose (mg/dL) Random Glucose 120 H Calcium 8.7 Total Bilirubin AST ALT Alkaline Phosphatase Troponin I Total Protein Albumin Globulin Albumin/Globulin Ratio Triglycerides Cholesterol LDL Cholesterol Direct HDL Cholesterol Urine Color Straw Urine Clarity Clear Urine pH 7.0 Ur Specific [place] 1.008 Urine Protein Negative Urine Glucose (UA) Neg Urine Ketones Negative Urine Blood Negative Urine Nitrate Negative Urine Bilirubin Negative Urine Urobilinogen 0.2-1.0 Ur Leukocyte Esterase Neg Urine RBC (Auto) < 1 Urine Microscopic WBC < 1 Ur Squamous Epith Cells 1 Blood Type Antibody Screen BBK History Checked 12/09/17 06:00 WBC RBC Hgb Hct MCV MCH MCHC RDW Plt Count MPV Neut % (Auto) Lymph % (Auto) [place] % (Auto) Eos % (Auto) Baso % (Auto) Neut # (Auto) Lymph # (Auto) [place] # (Auto) Eos # (Auto) Baso # (Auto) PT INR APTT 159.9 H* D D-Dimer, Quantitative pCO2 pO2 HCO3 ABG pH ABG Total CO2 ABG O2 Saturation ABG O2 Content ABG Base Excess ABG Hemoglobin ABG Carboxyhemoglobin POC ABG HHb (Measured) ABG Methemoglobin ABG O2 Capacity Fuentes Test A-a O2 Difference Hgb O2 Saturation FiO2 Sodium Potassium Chloride Carbon Dioxide Anion Gap BUN Creatinine Est GFR ( Amer) Est GFR (Non-Af Amer) POC Glucose (mg/dL) Random Glucose Calcium Total Bilirubin AST ALT Alkaline Phosphatase Troponin I Total Protein Albumin Globulin Albumin/Globulin Ratio Triglycerides Cholesterol LDL Cholesterol Direct HDL Cholesterol Urine Color Urine Clarity Urine pH Ur Specific [place] Urine Protein Urine Glucose (UA) Urine Ketones Urine Blood Urine Nitrate Urine Bilirubin Urine Urobilinogen Ur Leukocyte Esterase Urine RBC (Auto) Urine Microscopic WBC Ur Squamous Epith Cells Blood Type Antibody Screen BBK History Checked EKG/Cardiology Studies: Cardiology / EKG Studies 12/08/17 20:37 EKG [ELECTROCARDIOGRAM] Stat Comment: Mode Of Transportation: PORTABLE Reason For Exam: SOB Fingerstick Blood Sugar Results: 88 Critical Care Progress Note - Nutrition Nutrition: Nutrition Category Date Time Status Heart Healthy Diet [DIET] Diets 12/09/17 Breakfast Active Assessment/Plan - Assessment and Plan (Free Text) Assessment: A/P Respiratory insufficiency, PE, DVT, HTN, ?TIA, dehydration - Continue meds - O2 supplement - Neurology follow up - BP control
--- NOTE | 2017-12-09 08:30 | RAD ---
HISTORY: Chest pain COMPARISON: No prior. FINDINGS: LUNGS: The lungs are well inflated and clear. PLEURA: No significant pleural effusion identified, no pneumothorax apparent. CARDIOVASCULAR: The heart is normal in size. OSSEOUS STRUCTURES: No significant abnormalities. VISUALIZED UPPER ABDOMEN: Normal. OTHER FINDINGS: None. IMPRESSION: No active pulmonary disease.
--- NOTE | 2017-12-09 10:55 | CARD ---
APPROVED REPORT EKG Measurement Heart [id number] <Conclusion> Normal sinus rhythm Cannot rule out Anterior infarct, age undetermined Abnormal ECG
--- NOTE | 2017-12-09 11:14 | MRI ---
PROCEDURE: MRI BRAIN WITHOUT CONTRAST HISTORY: Dizziness/recent right face weakness and dysarthria COMPARISON: Noncontrast head CT from 12/08/2017. TECHNIQUE: Multiplanar, multisequence MR images of the brain were obtained without intravenous contrast enhancement. FINDINGS: HEMORRHAGE: None DWI: No evidence of an acute or early subacute infarction. BRAIN PARENCHYMA: There are mild chronic microangiopathic changes. There is no mass, mass effect or abnormal extra-axial fluid collection. There is no territorial infarction. There is a partially empty sella, otherwise the midline sagittal structures are normal. VENTRICLES: There is mild age-related global parenchymal volume loss and proportionate enlargement of the ventricles and cortical sulci. CRANIUM: There is normal bone marrow signal pattern. ORBITS: Grossly unremarkable. PARANASAL SINUSES/MASTOIDS: Predominantly clear. VASCULAR SYSTEM: There are normal signal voids in the larger intracranial arteries. OTHER FINDINGS: None. IMPRESSION: No acute intracranial abnormality. Mild age-related global parenchymal volume loss.
--- NOTE | 2017-12-09 14:06 | CP.PCM.HP ---
History of Present Illness - History of Present Illness History of Present Illness: CC: L leg pain, Chest wall pain. 57 y/o F, Multipe chronic medical condition, including Hx of DVT LLE in 2016, MA in September 2016 on Eliquis discontinue by her PMD one month ago. Pt came to [facility] on 12/08/17, to be evaluated for L leg pain, that was intermittent, sharp, severe intensity 10:10, onset day [employer], associate to swelling/redness and numbness to the toes of the L foot. Varicose veins operation LLE , 2 yrs ago, DVT LLE 2016 , Father Hx DVT Worsening symptoms: Mid sternal chest pain x 2 days associated to SOB, non radiated, and facial droop ongoing for 2 days about a week [employer] but after subsides, as per Pt. Aggravated factor: Movements/exercise. Pt denied: Fever, chills, trauma, n/v/d, abdominal pain, palpitations, cough, urinary symptoms, sick contact, recent travel out of [facility] [place]. CT Head: No evidence of acute intracranial abnormalities. Ext U-S: Left leg DVT. Chest CT: B/L PE. Present on Admission - Present on Admission Any Indicators Present on Admission: Yes History of DVT/PE: Yes Review of Systems - Constitutional Constitutional: Weakness. absent: Chills, Fever - EENT Eyes: Other (negative) Ears: Other (negative) Nose/Mouth/Throat: Other (negative) - Cardiovascular Cardiovascular: Chest Pain, Leg Edema - Respiratory Respiratory: Dyspnea - Gastrointestinal Gastrointestinal: Other (negative) - Genitourinary Genitourinary: Urinary Urgency - Musculoskeletal Musculoskeletal: Arthralgias, Other (leg pain) - Integumentary Integumentary: Swelling, Other (redness L leg) - Neurological Neurological: Focal Weakness (L facial for 2 days about 2 weeks [employer]) - Psychiatric Psychiatric: Other (negative) - Endocrine Endocrine: Other (negative) - Hematologic/Lymphatic Hematologic: Other (negative) Past Patient History - Past Medical History & Family History Past Medical History?: Yes Pertinent Family History: HTN, DM. Grandfather: Hx of Blood clots - Past Social History Smoking Status: Heavy Smoker > 10 Cigarettes Daily Chewing Tobacco Use: No Cigar Use: No Alcohol: Occasional Home Situation {Lives}: With Family - CARDIAC Hx Cardiac Disorders: Yes Hx Heart Attack: Yes Hx Hypercholesterolemia: Yes Hx Hypertension: Yes - PULMONARY Hx Respiratory Disorders: No - NEUROLOGICAL Hx Neurological Disorder: No - HEENT Hx HEENT Problems: No - RENAL Hx Chronic Kidney Disease: No - ENDOCRINE/METABOLIC Hx Endocrine Disorders: No - HEMATOLOGICAL/ONCOLOGICAL Hx Blood Disorders: No Other/Comment: Left leg DVT - INTEGUMENTARY Hx Dermatological Problems: Yes Hx Cellulitis: Yes (2014 s/p fall) - MUSCULOSKELETAL/RHEUMATOLOGICAL Hx Musculoskeletal Disorders: Yes Hx Back Pain: Yes Hx Osteoporosis: Yes - GASTROINTESTINAL Hx Gastrointestinal Disorders: No - GENITOURINARY/GYNECOLOGICAL Hx Genitourinary Disorders: No - PSYCHIATRIC Hx Psychophysiologic Disorder: Yes Hx Anxiety: Yes Hx Depression: Yes Hx Substance Use: No - SURGICAL HISTORY Hx Surgeries: Yes Hx Herniorrhaphy: Yes (left Hernia repair) Hx Hysterectomy: Yes Other/Comment: bilateral breast implant - ANESTHESIA Hx Anesthesia: Yes Hx Anesthesia Reactions: No Meds Allergies/Adverse Reactions: Allergies Allergy/AdvReac Type Severity Reaction Status Date / Time No Known Allergies Allergy Verified 12/08/17 20:06 Physical Exam - Constitutional Appears: No Acute Distress, Chronically Ill - Head Exam Head Exam: NORMAL INSPECTION - Eye Exam Eye Exam: PERRL - ENT Exam ENT Exam: Normal Exam - Neck Exam Neck exam: Positive for: Normal Inspection - Respiratory Exam Respiratory Exam: Decreased Breath Sounds (b/l) - Cardiovascular Exam Cardiovascular Exam: REGULAR RHYTHM - GI/Abdominal Exam GI & Abdominal Exam: Normal Bowel Sounds, Soft - Extremities Exam Extremities exam: Positive for: tenderness (and Left leg.) - Back Exam Back exam: NORMAL INSPECTION - Neurological Exam Neurological exam: Alert, Oriented x3 Additional comments: No motor sensory deficit. No facial droop, no aphasia. - Psychiatric Exam Psychiatric exam: Normal Mood - Skin Skin Exam: Warm Results - Vital Signs Recent Vital Signs: Last Vital Signs Temp 98.4 F 12/09/17 12:00 Pulse 67 12/09/17 12:00 Resp 22 12/09/17 12:00 BP 120/63 12/09/17 12:00 Pulse Ox 97 12/09/17 12:00 tomasz Ariza - Labs Result Diagrams: 12/10/17 04:40 12/10/17 04:40 Labs: Laboratory Results - last 24 hr 12/08/17 12/08/17 12/08/17 00:56 20:47 20:52 WBC 6.9 RBC 4.32 Hgb 13.9 Hct 40.6 MCV 94.0 MCH 32.2 H MCHC 34.3 RDW 13.4 Plt Count 189 MPV 7.7 Neut % (Auto) 41.2 L Lymph % (Auto) 45.2 H [place] % (Auto) 8.9 Eos % (Auto) 3.9 Baso % (Auto) 0.8 Neut # (Auto) 2.8 Lymph # (Auto) 3.1 [place] # (Auto) 0.6 Eos # (Auto) 0.3 Baso # (Auto) 0.1 PT INR APTT D-Dimer, Quantitative pCO2 43 pO2 69 L HCO3 25.9 ABG pH 7.40 ABG Total CO2 27.9 ABG O2 Saturation 96.6 ABG O2 Content 17.9 ABG Base Excess 1.4 ABG Hemoglobin 13.9 ABG Carboxyhemoglobin 2.9 H POC ABG HHb (Measured) 3.2 ABG Methemoglobin 2.3 ABG O2 Capacity 18.5 Fuentes Test Yes A-a O2 Difference 27.0 Hgb O2 Saturation 91.6 L FiO2 21.0 Sodium Potassium Chloride Carbon Dioxide Anion Gap BUN Creatinine Est GFR ( Amer) Est GFR (Non-Af Amer) POC Glucose (mg/dL) Random Glucose Calcium Total Bilirubin AST ALT Alkaline Phosphatase Troponin I Total Protein Albumin Globulin Albumin/Globulin Ratio Triglycerides Cholesterol LDL Cholesterol Direct HDL Cholesterol Urine Color Urine Clarity Urine pH Ur Specific [place] Urine Protein Urine Glucose (UA) Urine Ketones Urine Blood Urine Nitrate Urine Bilirubin Urine Urobilinogen Ur Leukocyte Esterase Urine RBC (Auto) Urine Microscopic WBC Ur Squamous Epith Cells Blood Type O POSITIVE Antibody Screen Negative BBK History Checked No verified bt 12/08/17 12/08/17 12/08/17 20:52 20:52 21:12 WBC RBC Hgb Hct MCV MCH MCHC RDW Plt Count MPV Neut % (Auto) Lymph % (Auto) [place] % (Auto) Eos % (Auto) Baso % (Auto) Neut # (Auto) Lymph # (Auto) [place] # (Auto) Eos # (Auto) Baso # (Auto) PT 10.9 INR 1.0 APTT 27.6 D-Dimer, Quantitative 2644 H pCO2 pO2 HCO3 ABG pH ABG Total CO2 ABG O2 Saturation ABG O2 Content ABG Base Excess ABG Hemoglobin ABG Carboxyhemoglobin POC ABG HHb (Measured) ABG Methemoglobin ABG O2 Capacity Fuentes Test A-a O2 Difference Hgb O2 Saturation FiO2 Sodium 142 Potassium 3.6 Chloride 104 Carbon Dioxide 23 Anion Gap 19 BUN 20 H Creatinine 0.6 L Est GFR ( Amer) > 60 Est GFR (Non-Af Amer) > 60 POC Glucose (mg/dL) 88 Random Glucose 92 Calcium 9.4 Total Bilirubin 0.5 AST 25 ALT 38 Alkaline Phosphatase 97 Troponin I < 0.0120 Total Protein 7.4 Albumin 4.0 Globulin 3.4 Albumin/Globulin Ratio 1.2 Triglycerides 169 H Cholesterol 183 LDL Cholesterol Direct 99 HDL Cholesterol 56 Urine Color Urine Clarity Urine pH Ur Specific [place] Urine Protein Urine Glucose (UA) Urine Ketones Urine Blood Urine Nitrate Urine Bilirubin Urine Urobilinogen Ur Leukocyte Esterase Urine RBC (Auto) Urine Microscopic WBC Ur Squamous Epith Cells Blood Type Antibody Screen BBK History Checked 12/08/17 12/09/17 12/09/17 21:16 06:00 06:00 WBC 6.0 RBC 4.14 Hgb 13.5 Hct 38.8 MCV 93.6 MCH 32.5 H MCHC 34.8 RDW 13.5 Plt Count 172 MPV 8.0 Neut % (Auto) 30.7 L Lymph % (Auto) 55.0 H [place] % (Auto) 8.5 Eos % (Auto) 5.4 H Baso % (Auto) 0.4 Neut # (Auto) 1.8 Lymph # (Auto) 3.3 [place] # (Auto) 0.5 Eos # (Auto) 0.3 Baso # (Auto) 0.0 PT INR APTT D-Dimer, Quantitative pCO2 pO2 HCO3 ABG pH ABG Total CO2 ABG O2 Saturation ABG O2 Content ABG Base Excess ABG Hemoglobin ABG Carboxyhemoglobin POC ABG HHb (Measured) ABG Methemoglobin ABG O2 Capacity Fuentes Test A-a O2 Difference Hgb O2 Saturation FiO2 Sodium 143 Potassium 3.5 L Chloride 107 Carbon Dioxide 25 Anion Gap 15 BUN 15 Creatinine 0.5 L Est GFR ( Amer) > 60 Est GFR (Non-Af Amer) > 60 POC Glucose (mg/dL) Random Glucose 120 H Calcium 8.7 Total Bilirubin AST ALT Alkaline Phosphatase Troponin I Total Protein Albumin Globulin Albumin/Globulin Ratio Triglycerides Cholesterol LDL Cholesterol Direct HDL Cholesterol Urine Color Straw Urine Clarity Clear Urine pH 7.0 Ur Specific [place] 1.008 Urine Protein Negative Urine Glucose (UA) Neg Urine Ketones Negative Urine Blood Negative Urine Nitrate Negative Urine Bilirubin Negative Urine Urobilinogen 0.2-1.0 Ur Leukocyte Esterase Neg Urine RBC (Auto) < 1 Urine Microscopic WBC < 1 Ur Squamous Epith Cells 1 Blood Type Antibody Screen BBK History Checked 12/09/17 06:00 WBC RBC Hgb Hct MCV MCH MCHC RDW Plt Count MPV Neut % (Auto) Lymph % (Auto) [place] % (Auto) Eos % (Auto) Baso % (Auto) Neut # (Auto) Lymph # (Auto) [place] # (Auto) Eos # (Auto) Baso # (Auto) PT INR APTT 159.9 H* D D-Dimer, Quantitative pCO2 pO2 HCO3 ABG pH ABG Total CO2 ABG O2 Saturation ABG O2 Content ABG Base Excess ABG Hemoglobin ABG Carboxyhemoglobin POC ABG HHb (Measured) ABG Methemoglobin ABG O2 Capacity Fuentes Test A-a O2 Difference Hgb O2 Saturation FiO2 Sodium Potassium Chloride Carbon Dioxide Anion Gap BUN Creatinine Est GFR ( Amer) Est GFR (Non-Af Amer) POC Glucose (mg/dL) Random Glucose Calcium Total Bilirubin AST ALT Alkaline Phosphatase Troponin I Total Protein Albumin Globulin Albumin/Globulin Ratio Triglycerides Cholesterol LDL Cholesterol Direct HDL Cholesterol Urine Color Urine Clarity Urine pH Ur Specific [place] Urine Protein Urine Glucose (UA) Urine Ketones Urine Blood Urine Nitrate Urine Bilirubin Urine Urobilinogen Ur Leukocyte Esterase Urine RBC (Auto) Urine Microscopic WBC Ur Squamous Epith Cells Blood Type Antibody Screen BBK History Checked reviewed J.P. - EKG Data EKG comments: reviewed J.P. - Imaging and Cardiology Chest x-ray Status: Report reviewed by me (J.P.) CT scan - head Status: Report reviewed by me (LillyPDarren) Left Lower Extremity US Status: Report reviewed by me (To) CT scan - chest Status: Report reviewed by me (LillyPDarren) Assessment & Plan (1) Bilateral pulmonary embolism Status: Acute Priority: High (2) Left leg DVT Assessment and Plan: recurrent Status: Acute Priority: High (3) TIA (transient ischemic attack) Status: Acute Priority: High (4) Dehydration Status: Acute Priority: High (5) Hypercholesterolemia Status: Chronic Priority: Medium (6) HTN (hypertension) Status: Chronic Priority: Medium - Assessment and Plan (Free Text) Plan: Continue NC 2 L/M, f/u Brain MRI, CTA Head and Neck , ECHO , ASA, Heparin, Metoprolol, Morphine, Lipitor and rest of Tx, genetic markers PT,OT eval, Neurology consult, switch Heparin to Eliquis in am - Date & Time Date: 12/09/17 Time: 13:30
--- NOTE | 2017-12-09 18:01 | CP.PCM.CON ---
History of Present Illness - History of Present Illness History of Present Illness: 57 year old female with a history of unprovoked DVT of the LLE in 2017 s/p 1 year of Eliquis, recent ID, admitted with LLE DVT and PE. The patient reports to left leg swelling and pain, associated with chest pain and shortness of breath. She denies immobility and extremity trauma. She reports to stopping anticoagulation 1-2 months ago. Past medical history: DVT, ID Past surgical history: Denies Family history: Denies hematologic and oncologic problems Social history: Denies tobacco, alcohol, and illicit drug use. Allergies: NKA Review of systems: All remaining review of systems including HEENT, cardiovascular, respiratory, gastrointestinal, genitourinary, musculoskeletal, dermatologic, neurologic, and psychiatric are negative unless mentioned in the HPI. Past Patient History - Past Medical History & Family History Past Medical History?: Yes - Past Social History Smoking Status: Heavy Smoker > 10 Cigarettes Daily Chewing Tobacco Use: No Cigar Use: No Alcohol: Occasional Home Situation {Lives}: With Family - CARDIAC Hx Hypercholesterolemia: Yes Hx Hypertension: Yes - PULMONARY Hx Respiratory Disorders: No - NEUROLOGICAL Hx Neurological Disorder: No - RENAL Hx Chronic Kidney Disease: No - ENDOCRINE/METABOLIC Hx Endocrine Disorders: No - HEMATOLOGICAL/ONCOLOGICAL Other/Comment: Left leg DVT - INTEGUMENTARY Hx Cellulitis: Yes (2013 s/p fall) - MUSCULOSKELETAL/RHEUMATOLOGICAL Hx Back Pain: Yes Hx Osteoporosis: Yes - GASTROINTESTINAL Hx Gastrointestinal Disorders: No - GENITOURINARY/GYNECOLOGICAL Hx Genitourinary Disorders: No - PSYCHIATRIC Hx Anxiety: Yes Hx Depression: Yes Hx Substance Use: No - SURGICAL HISTORY Hx Herniorrhaphy: Yes (left Hernia repair) Hx Hysterectomy: Yes Other/Comment: bilateral breast implant - ANESTHESIA Hx Anesthesia: Yes Hx Anesthesia Reactions: No Meds Allergies/Adverse Reactions: Allergies Allergy/AdvReac Type Severity Reaction Status Date / Time No Known Allergies Allergy Verified 12/08/17 20:06 - Medications Medications: Current Medications Acetaminophen (Tylenol 325mg Tab) 650 mg PO Q6 PRN PRN Reason: Pain, Mild (1-3) Aspirin (Aspirin Chewable) 81 mg PO DAILY [facility] Last Admin: 12/09/17 08:23 Dose: 81 mg Atorvastatin Calcium (Lipitor) 10 mg PO DAILY [facility] Last Admin: 12/09/17 08:23 Dose: 10 mg Heparin Sodium/Dextrose (Heparin 25,000 Units/250ml In D5w) 25,000 units in 250 mls @ 14 mls/hr IV .[id number] JOSEPH PRN Reason: Protocol Last Titration: 12/09/17 08:23 Dose: 11 mls/hr Metoprolol Succinate (Toprol Xl) 25 mg PO DAILY JOSEPH Morphine Sulfate (Morphine) 2 mg IVP Q6 PRN PRN Reason: Pain, moderate (4-7) Physical Exam - Head Exam Head Exam: ATRAUMATIC - Eye Exam Eye Exam: Normal appearance - ENT Exam ENT Exam: Mucous Membranes Dry - Respiratory Exam Respiratory Exam: NORMAL BREATHING PATTERN - Cardiovascular Exam Cardiovascular Exam: +S1, +S2 - GI/Abdominal Exam GI & Abdominal Exam: Normal Bowel Sounds - Extremities Exam Extremities exam: Positive for: pedal edema - Neurological Exam Neurological exam: Oriented x3 - Psychiatric Exam Psychiatric exam: Normal Affect, Normal Mood - Skin Skin Exam: Warm Results - Vital Signs Recent Vital Signs: Last Vital Signs Temp 97.8 F 12/09/17 16:00 Pulse 79 12/09/17 16:00 Resp 13 12/09/17 16:00 BP 139/62 12/09/17 16:00 Pulse Ox 98 12/09/17 16:00 - Labs Result Diagrams: 12/10/17 04:40 12/10/17 04:40 Labs: Laboratory Results - last 24 hr 12/08/17 12/08/17 12/08/17 00:56 20:47 20:52 WBC 6.9 RBC 4.32 Hgb 13.9 Hct 40.6 MCV 94.0 MCH 32.2 H MCHC 34.3 RDW 13.4 Plt Count 189 MPV 7.7 Neut % (Auto) 41.2 L Lymph % (Auto) 45.2 H [place] % (Auto) 8.9 Eos % (Auto) 3.9 Baso % (Auto) 0.8 Neut # (Auto) 2.8 Lymph # (Auto) 3.1 [place] # (Auto) 0.6 Eos # (Auto) 0.3 Baso # (Auto) 0.1 PT INR APTT D-Dimer, Quantitative pCO2 43 pO2 69 L HCO3 25.9 ABG pH 7.40 ABG Total CO2 27.9 ABG O2 Saturation 96.6 ABG O2 Content 17.9 ABG Base Excess 1.4 ABG Hemoglobin 13.9 ABG Carboxyhemoglobin 2.9 H POC ABG HHb (Measured) 3.2 ABG Methemoglobin 2.3 ABG O2 Capacity 18.5 Fuentes Test Yes A-a O2 Difference 27.0 Hgb O2 Saturation 91.6 L FiO2 21.0 Sodium Potassium Chloride Carbon Dioxide Anion Gap BUN Creatinine Est GFR ( Amer) Est GFR (Non-Af Amer) POC Glucose (mg/dL) Random Glucose Calcium Total Bilirubin AST ALT Alkaline Phosphatase Troponin I Total Protein Albumin Globulin Albumin/Globulin Ratio Triglycerides Cholesterol LDL Cholesterol Direct HDL Cholesterol Urine Color Urine Clarity Urine pH Ur Specific [place] Urine Protein Urine Glucose (UA) Urine Ketones Urine Blood Urine Nitrate Urine Bilirubin Urine Urobilinogen Ur Leukocyte Esterase Urine RBC (Auto) Urine Microscopic WBC Ur Squamous Epith Cells Blood Type O POSITIVE Antibody Screen Negative BBK History Checked No verified bt 12/08/17 12/08/17 12/08/17 20:52 20:52 21:12 WBC RBC Hgb Hct MCV MCH MCHC RDW Plt Count MPV Neut % (Auto) Lymph % (Auto) [place] % (Auto) Eos % (Auto) Baso % (Auto) Neut # (Auto) Lymph # (Auto) [place] # (Auto) Eos # (Auto) Baso # (Auto) PT 10.9 INR 1.0 APTT 27.6 D-Dimer, Quantitative 2644 H pCO2 pO2 HCO3 ABG pH ABG Total CO2 ABG O2 Saturation ABG O2 Content ABG Base Excess ABG Hemoglobin ABG Carboxyhemoglobin POC ABG HHb (Measured) ABG Methemoglobin ABG O2 Capacity Fuentes Test A-a O2 Difference Hgb O2 Saturation FiO2 Sodium 142 Potassium 3.6 Chloride 104 Carbon Dioxide 23 Anion Gap 19 BUN 20 H Creatinine 0.6 L Est GFR ( Amer) > 60 Est GFR (Non-Af Amer) > 60 POC Glucose (mg/dL) 88 Random Glucose 92 Calcium 9.4 Total Bilirubin 0.5 AST 25 ALT 38 Alkaline Phosphatase 97 Troponin I < 0.0120 Total Protein 7.4 Albumin 4.0 Globulin 3.4 Albumin/Globulin Ratio 1.2 Triglycerides 169 H Cholesterol 183 LDL Cholesterol Direct 99 HDL Cholesterol 56 Urine Color Urine Clarity Urine pH Ur Specific [place] Urine Protein Urine Glucose (UA) Urine Ketones Urine Blood Urine Nitrate Urine Bilirubin Urine Urobilinogen Ur Leukocyte Esterase Urine RBC (Auto) Urine Microscopic WBC Ur Squamous Epith Cells Blood Type Antibody Screen BBK History Checked 12/08/17 12/09/17 12/09/17 21:16 06:00 06:00 WBC 6.0 RBC 4.14 Hgb 13.5 Hct 38.8 MCV 93.6 MCH 32.5 H MCHC 34.8 RDW 13.5 Plt Count 172 MPV 8.0 Neut % (Auto) 30.7 L Lymph % (Auto) 55.0 H [place] % (Auto) 8.5 Eos % (Auto) 5.4 H Baso % (Auto) 0.4 Neut # (Auto) 1.8 Lymph # (Auto) 3.3 [place] # (Auto) 0.5 Eos # (Auto) 0.3 Baso # (Auto) 0.0 PT INR APTT D-Dimer, Quantitative pCO2 pO2 HCO3 ABG pH ABG Total CO2 ABG O2 Saturation ABG O2 Content ABG Base Excess ABG Hemoglobin ABG Carboxyhemoglobin POC ABG HHb (Measured) ABG Methemoglobin ABG O2 Capacity Fuentes Test A-a O2 Difference Hgb O2 Saturation FiO2 Sodium 143 Potassium 3.5 L Chloride 107 Carbon Dioxide 25 Anion Gap 15 BUN 15 Creatinine 0.5 L Est GFR ( Amer) > 60 Est GFR (Non-Af Amer) > 60 POC Glucose (mg/dL) Random Glucose 120 H Calcium 8.7 Total Bilirubin AST ALT Alkaline Phosphatase Troponin I Total Protein Albumin Globulin Albumin/Globulin Ratio Triglycerides Cholesterol LDL Cholesterol Direct HDL Cholesterol Urine Color Straw Urine Clarity Clear Urine pH 7.0 Ur Specific [place] 1.008 Urine Protein Negative Urine Glucose (UA) Neg Urine Ketones Negative Urine Blood Negative Urine Nitrate Negative Urine Bilirubin Negative Urine Urobilinogen 0.2-1.0 Ur Leukocyte Esterase Neg Urine RBC (Auto) < 1 Urine Microscopic WBC < 1 Ur Squamous Epith Cells 1 Blood Type Antibody Screen BBK History Checked 12/09/17 12/09/17 06:00 14:30 WBC RBC Hgb Hct MCV MCH MCHC RDW Plt Count MPV Neut % (Auto) Lymph % (Auto) [place] % (Auto) Eos % (Auto) Baso % (Auto) Neut # (Auto) Lymph # (Auto) [place] # (Auto) Eos # (Auto) Baso # (Auto) PT INR APTT 159.9 H* D 63.6 H D D-Dimer, Quantitative pCO2 pO2 HCO3 ABG pH ABG Total CO2 ABG O2 Saturation ABG O2 Content ABG Base Excess ABG Hemoglobin ABG Carboxyhemoglobin POC ABG HHb (Measured) ABG Methemoglobin ABG O2 Capacity Fuentes Test A-a O2 Difference Hgb O2 Saturation FiO2 Sodium Potassium Chloride Carbon Dioxide Anion Gap BUN Creatinine Est GFR ( Amer) Est GFR (Non-Af Amer) POC Glucose (mg/dL) Random Glucose Calcium Total Bilirubin AST ALT Alkaline Phosphatase Troponin I Total Protein Albumin Globulin Albumin/Globulin Ratio Triglycerides Cholesterol LDL Cholesterol Direct HDL Cholesterol Urine Color Urine Clarity Urine pH Ur Specific [place] Urine Protein Urine Glucose (UA) Urine Ketones Urine Blood Urine Nitrate Urine Bilirubin Urine Urobilinogen Ur Leukocyte Esterase Urine RBC (Auto) Urine Microscopic WBC Ur Squamous Epith Cells Blood Type Antibody Screen BBK History Checked Assessment & Plan (1) Bilateral pulmonary embolism Assessment and Plan: associated with DVT recurrent venous clotting on therapeutic anticoagulation 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 Status: Acute
[2017-12-09] MEDS ORDERED: Sodium Chloride 0.9% 100 ML ONE (20:51)
[2017-12-09] MEDS ORDERED: Iodixanol 320 MG/ML 100 ML BOTTLE IV ONE (20:51)
--- NOTE | 2017-12-09 22:25 | CT ---
EXAM: CT Angiography Head With Intravenous Contrast CT Angiography Neck With Intravenous Contrast CLINICAL HISTORY: 57 years old, female; Signs and symptoms; Other: Rt side weakness dx pe dvt; Additional info: Dizziness/ recent right face weakness with dysarth TECHNIQUE: Axial computed tomographic angiography images of the head and neck with intravenous contrast using CT angiography protocol. All CT scans at this facility use one or more dose reduction techniques, viz.: automated exposure control; ma/kV adjustment per patient size (including targeted exams where dose is matched to indication; i.e. head); or iterative reconstruction technique. MIP reconstructed images were created and reviewed. Coronal and sagittal reformatted images were created and reviewed. CONTRAST: 98 mL of VISIPAQUE administered intravenously. COMPARISON: CT - ANGIO CHEST PE PROTOCOL 2017-12-08 22:19 FINDINGS: HEAD: Right anterior cerebral artery: Unremarkable. No occlusion or significant stenosis. No aneurysm. Right middle cerebral artery: Unremarkable. No occlusion or significant stenosis. No aneurysm. Right posterior cerebral artery: Unremarkable. No occlusion or significant stenosis. No aneurysm. Left anterior cerebral artery: Unremarkable. No occlusion or significant stenosis. No aneurysm. Left middle cerebral artery: Unremarkable. No occlusion or significant stenosis. No aneurysm. Left posterior cerebral artery: Unremarkable. No occlusion or significant stenosis. No aneurysm. Basilar artery: Unremarkable. No occlusion or significant stenosis. No aneurysm. NECK: Right common carotid artery: Unremarkable. No significant stenosis. No dissection or occlusion. Right internal carotid artery: Unremarkable. No significant stenosis. No dissection or occlusion. Right external carotid artery: Unremarkable. No occlusion. Right vertebral artery: Unremarkable. No significant stenosis. No dissection or occlusion. Left common carotid artery: Unremarkable. No significant stenosis. No dissection or occlusion. Left internal carotid artery: Unremarkable. No significant stenosis. No dissection or occlusion. Left external carotid artery: Unremarkable. No occlusion. Left vertebral artery: Unremarkable. No significant stenosis. No dissection or occlusion. HEAD and NECK: Bones/joints: No acute fracture. No dislocation. Soft tissues: Unremarkable as visualized. No mass. CAROTID STENOSIS REFERENCE USING NASCET CRITERIA: % ICA stenosis = (1 - narrowest ICA diameter/diameter of distal cervical ICA) x 100. Mild - <50% stenosis. Moderate - 50-69% stenosis. Severe - 70-94% stenosis. Near occlusion - 95-99% stenosis. Occluded - 100% stenosis. IMPRESSION: 1. Unremarkable cervical carotids. 2. Unremarkable intracranial arteries. 3. Remainder of findings as above.
[2017-12-10 05:27] LABS: BASO % 0.7 % (0.0-2.0); EOS # 0.3 K/uL (0.0-0.7); EOS % 5.9 % (0.0-4.0); HEMOGLOBIN 14.7 g/dL (12.0-16.0); LYMPH # 2.2 K/uL (1.0-4.3); LYMPH % 44.3 % (20.0-40.0); MEAN CORPUSCULAR HEMOGLOBIN 32.3 pg (27.0-31.0); MEAN CORPUSCULAR HGB CONC 34.4 g/dL (33.0-37.0); MEAN PLATELET VOLUME 7.8 fl (7.2-11.7); MONO # 0.4 K/uL (0.0-0.8); MONO % 7.2 % (0.0-10.0); NEUT # 2.1 K/uL (1.8-7.0); NEUT % 41.9 % (50.0-75.0); RBC 4.55 Mil/uL (3.80-5.20); RED CELL DISTRIBUTION WIDTH 13.5 % (11.5-14.5)
[2017-12-10 05:42] LABS: ALB/GLOB RATIO 1.1 (1.0-2.1); ALBUMIN 3.8 g/dL (3.5-5.0); ALT/SGPT 30 U/L (9-52); AST/SGOT 22 U/L (14-36); BLOOD UREA NITROGEN 12 mg/dl (7-17); GFR AFRICAN-AMERICAN > 60; GFR NON-AFRICAN AMERICAN > 60
[2017-12-10] MEDS ORDERED: DEXAMETHASONE IV ONE ×2 (06:52→07:00)
[2017-12-10] MEDS ORDERED: WATER IV ONE ×2 (06:52→07:00)
[2017-12-10] MEDS ORDERED: Magnesium Sulfate 2 gm/50 ml 2 GM/50 ML BAG IVPB ONE (06:52)
[2017-12-10] MEDS ORDERED: DEXTROSE 5% IV ONE ×2 (06:52→07:00)
[2017-12-10] MEDS ORDERED: Valproate 500 MG in Sodium Chloride 0.9% 100 ML IVPB ONE (06:53)
[2017-12-10 07:00] LABS: PARTIAL THROMBOPLASTIN TIME 63.6 Seconds (25.6-37.1); PROTHROMBIN TIME 10.8 Seconds (9.8-13.1)
--- NOTE | 2017-12-10 07:25 | CP.CCUPN ---
CCU Subjective - Physician Review Events Since Last Encounter (Free Text): Patient awake, no distress, no pressors, no fever, follow commands, on O2 supplement, events reviewed CCU Objective - Vital Signs / Intake & Output Vital Signs (Last 4 hours): Vital Signs Temp Pulse Resp BP Pulse Ox 12/10/17 06:00 85 21 116/70 97 12/10/17 04:00 98.8 F 85 16 152/75 H 92 L Intake and Output (Last 8hrs): Intake & Output 12/09/17 12/10/17 12/10/17 22:59 06:59 14:59 Intake Total 363 88 Output Total 725 525 Balance -362 -437 Intake: IV 243 88 Oral 120 Output: Urine 725 525 Urine, Voided 725 525 Other: # Bowel Movements 0 - Physical Exam Head: Positive for: Atraumatic, Normocephalic Pupils: Positive for: PERRL Extroacular Muscles: Positive for: EOMI Conjunctiva: Positive for: Normal Mouth: Positive for: Dry Nose (External): Positive for: Atraumatic Neck: Positive for: Normal Range of Motion Respiratory/Chest: Positive for: Clear to Auscultation Cardiovascular: Positive for: Regular Rate and Rhythm Abdomen: Positive for: Normal Bowel Sounds Upper Extremity: Positive for: Normal Inspection Lower Extremity: Positive for: Normal Inspection Neurological: Positive for: GCS=15, Speech Normal Psychiatric: Positive for: Alert, Oriented x 3 - Medications Active Medications: Active Medications Generic Name Dose Route Start Last Admin Trade Name Freq PRN Reason Stop Dose Admin Acetaminophen 650 mg 12/09/17 00:53 Tylenol 325mg Tab PO Q6 PRN Pain, Mild (1-3) Aspirin 81 mg 12/09/17 09:00 12/09/17 08:23 Aspirin Chewable PO 81 mg DAILY [facility]PH Administration Atorvastatin Calcium 10 mg 12/09/17 09:00 12/09/17 08:23 Lipitor PO 10 mg DAILY [facility]PH Administration Magnesium Sulfate 2 gm in 50 mls @ 50 mls/hr 12/10/17 06:52 Magnesium Sulfate 2 Gm/50 Ml Water IVPB 12/10/17 07:51 ONCE ONE 2 GM/HR Valproate Sodium 500 mg/ 105 mls @ 105 mls/hr 12/10/17 06:53 Sodium Chloride IVPB 12/10/17 07:52 ONCE ONE As Directed Dexamethasone 100 mg/ Dextrose 110 mls @ 183.333 mls/hr 12/10/17 07:00 IV 12/10/17 07:35 ONCE ONE Metoprolol Succinate 25 mg 12/10/17 09:00 Toprol Xl PO DAILY [facility] Morphine Sulfate 2 mg 12/09/17 00:52 Morphine IVP Q6 PRN Pain, moderate (4-7) - Patient Studies Lab Studies: Lab Studies 12/10/17 12/10/17 12/10/17 Range/Units 04:40 04:40 04:40 WBC 5.0 (4.8-10.8) K/uL RBC 4.55 (3.80-5.20) Mil/uL Hgb 14.7 (12.0-16.0) g/dL Hct 42.8 (34.0-47.0) % MCV 94.0 (81.0-99.0) fl MCH 32.3 H (27.0-31.0) pg MCHC 34.4 (33.0-37.0) g/dL RDW 13.5 (11.5-14.5) % Plt Count 190 (130-400) K/uL MPV 7.8 (7.2-11.7) fl Neut % (Auto) 41.9 L (50.0-75.0) % Lymph % (Auto) 44.3 H (20.0-40.0) % Bay % (Auto) 7.2 (0.0-10.0) % Eos % (Auto) 5.9 H (0.0-4.0) % Baso % (Auto) 0.7 (0.0-2.0) % Neut # (Auto) 2.1 (1.8-7.0) K/uL Lymph # (Auto) 2.2 (1.0-4.3) K/uL [place] # (Auto) 0.4 (0.0-0.8) K/uL Eos # (Auto) 0.3 (0.0-0.7) K/uL Baso # (Auto) 0.0 (0.0-0.2) K/uL PT 10.8 (9.8-13.1) Seconds INR 1.0 (0.9-1.2) APTT 63.6 H (25.6-37.1) Seconds Sodium 143 (132-148) mmol/l Potassium 3.9 (3.6-5.0) MMOL/L Chloride 105 (98-107) mmol/L Carbon Dioxide 25 (22-30) mmol/L Anion Gap 17 (10-20) BUN 12 (7-17) mg/dl Creatinine 0.5 L (0.7-1.2) mg/dl Est GFR ( Amer) > 60 Est GFR (Non-Af Amer) > 60 Random Glucose 102 (65-105) mg/dL Calcium 9.0 (8.4-10.2) mg/dL Total Bilirubin 0.6 (0.2-1.3) mg/dl AST 22 (14-36) U/L ALT 30 (9-52) U/L Alkaline Phosphatase 89 (38-126) U/L Total Protein 7.3 (6.3-8.2) G/DL Albumin 3.8 (3.5-5.0) g/dL Globulin 3.4 (2.2-3.9) gm/dL Albumin/Globulin Ratio 1.1 (1.0-2.1) Blood Type Confirm 12/10/17 12/09/17 12/09/17 Range/Units 00:05 20:30 14:30 WBC (4.8-10.8) K/uL RBC (3.80-5.20) Mil/uL Hgb (12.0-16.0) g/dL Hct (34.0-47.0) % MCV (81.0-99.0) fl MCH (27.0-31.0) pg MCHC (33.0-37.0) g/dL RDW (11.5-14.5) % Plt Count (130-400) K/uL MPV (7.2-11.7) fl Neut % (Auto) (50.0-75.0) % Lymph % (Auto) (20.0-40.0) % Bay % (Auto) (0.0-10.0) % Eos % (Auto) (0.0-4.0) % Baso % (Auto) (0.0-2.0) % Neut # (Auto) (1.8-7.0) K/uL Lymph # (Auto) (1.0-4.3) K/uL [place] # (Auto) (0.0-0.8) K/uL Eos # (Auto) (0.0-0.7) K/uL Baso # (Auto) (0.0-0.2) K/uL PT (9.8-13.1) Seconds INR (0.9-1.2) APTT 61.0 H 63.6 H D (25.6-37.1) Seconds Sodium (132-148) mmol/l Potassium (3.6-5.0) MMOL/L Chloride (98-107) mmol/L Carbon Dioxide (22-30) mmol/L Anion Gap (10-20) BUN (7-17) mg/dl Creatinine (0.7-1.2) mg/dl Est GFR ( Amer) Est GFR (Non-Af Amer) Random Glucose (65-105) mg/dL Calcium (8.4-10.2) mg/dL Total Bilirubin (0.2-1.3) mg/dl AST (14-36) U/L ALT (9-52) U/L Alkaline Phosphatase (38-126) U/L Total Protein (6.3-8.2) G/DL Albumin (3.5-5.0) g/dL Globulin (2.2-3.9) gm/dL Albumin/Globulin Ratio (1.0-2.1) Blood Type Confirm O POSITIVE Laboratory Results - last 24 hr 12/09/17 12/09/17 12/10/17 14:30 20:30 00:05 WBC RBC Hgb Hct MCV MCH MCHC RDW Plt Count MPV Neut % (Auto) Lymph % (Auto) Bay % (Auto) Eos % (Auto) Baso % (Auto) Neut # (Auto) Lymph # (Auto) Bay # (Auto) Eos # (Auto) Baso # (Auto) PT INR APTT 63.6 H D 61.0 H Sodium Potassium Chloride Carbon Dioxide Anion Gap BUN Creatinine Est GFR ( Amer) Est GFR (Non-Af Amer) Random Glucose Calcium Total Bilirubin AST ALT Alkaline Phosphatase Total Protein Albumin Globulin Albumin/Globulin Ratio Blood Type Confirm O POSITIVE 12/10/17 12/10/17 12/10/17 04:40 04:40 04:40 WBC 5.0 RBC 4.55 Hgb 14.7 Hct 42.8 MCV 94.0 MCH 32.3 H MCHC 34.4 RDW 13.5 Plt Count 190 MPV 7.8 Neut % (Auto) 41.9 L Lymph % (Auto) 44.3 H [place] % (Auto) 7.2 Eos % (Auto) 5.9 H Baso % (Auto) 0.7 Neut # (Auto) 2.1 Lymph # (Auto) 2.2 Bay # (Auto) 0.4 Eos # (Auto) 0.3 Baso # (Auto) 0.0 PT 10.8 INR 1.0 APTT 63.6 H Sodium 143 Potassium 3.9 Chloride 105 Carbon Dioxide 25 Anion Gap 17 BUN 12 Creatinine 0.5 L Est GFR ( Amer) > 60 Est GFR (Non-Af Amer) > 60 Random Glucose 102 Calcium 9.0 Total Bilirubin 0.6 AST 22 ALT 30 Alkaline Phosphatase 89 Total Protein 7.3 Albumin 3.8 Globulin 3.4 Albumin/Globulin Ratio 1.1 Blood Type Confirm Fingerstick Blood Sugar Results: 88 Critical Care Progress Note - Nutrition Nutrition: Nutrition Category Date Time Status Heart Healthy Diet [DIET] Diets 12/09/17 Breakfast Active Assessment/Plan - Assessment and Plan (Free Text) Assessment: A/P Respiratory insufficiency, PE, DVT, HTN, ?TIA, dehydration - Continue meds - O2 supplement - Neurology follow up - BP control
[2017-12-10] MEDS ORDERED: Dexamethasone 10 MG in Dextrose 5% In Water 50 ML IVP ONE (07:36)
[2017-12-10] MEDS: Metoprolol Succinate 25 mg XL Tab PO SCH (08:05)
[2017-12-10] MEDS ORDERED: Heparin 25,000units in D5W 25,000 UNITS/250 ML BAG IV SCH (15:30)
--- NOTE | 2017-12-10 17:00 | CP.PCM.PN ---
Subjective - Date & Time of Evaluation Date of Evaluation: 12/10/17 Time of Evaluation: 11:00 - Subjective Subjective: F/U PE No SOB , no CP , no palpitations , no LLE pain Objective - Vital Signs/Intake and Output Vital Signs (last 24 hours): Temp Pulse Resp BP Pulse Ox 98.6 F 94 H 12 137/94 H 100 12/10/17 16:00 12/10/17 16:00 12/10/17 16:00 12/10/17 16:00 12/10/17 16:00 Intake and Output: 12/10/17 12/10/17 06:59 18:59 Intake Total 121 637 Output Total 1000 900 Balance -879 -263 - Medications Medications: Current Medications Acetaminophen (Tylenol 325mg Tab) 650 mg PO Q6 PRN PRN Reason: Pain, Mild (1-3) Last Admin: 12/10/17 08:07 Dose: 650 mg Aspirin (Aspirin Chewable) 81 mg PO DAILY [facility] Last Admin: 12/10/17 08:07 Dose: 81 mg Atorvastatin Calcium (Lipitor) 10 mg PO DAILY [facility] Last Admin: 12/10/17 08:06 Dose: 10 mg Heparin Sodium/Dextrose (Heparin 25,000 Units/250ml In D5w) 25,000 units in 250 mls @ 11 mls/hr IV .[id number] [facility] PRN Reason: Protocol Metoprolol Succinate (Toprol Xl) 25 mg PO DAILY [facility] Last Admin: 12/10/17 08:05 Dose: 25 mg Morphine Sulfate (Morphine) 2 mg IVP Q6 PRN PRN Reason: Pain, moderate (4-7) - Labs Labs: 12/10/17 04:40 12/10/17 04:40 PT 10.8 Seconds (9.8-13.1) 12/10/17 04:40 INR 1.0 (0.9-1.2) 12/10/17 04:40 APTT 63.6 Seconds (25.6-37.1) H 12/10/17 04:40 - Constitutional Appears: No Acute Distress, Chronically Ill - Head Exam Head Exam: NORMAL INSPECTION - Eye Exam Eye Exam: PERRL - ENT Exam ENT Exam: Normal Exam - Neck Exam Neck Exam: Normal Inspection - Respiratory Exam Respiratory Exam: Decreased Breath Sounds (b/l) - Cardiovascular Exam Cardiovascular Exam: REGULAR RHYTHM - GI/Abdominal Exam GI & Abdominal Exam: Soft, Normal Bowel Sounds - Extremities Exam Extremities Exam: Tenderness (left leg) - Back Exam Back Exam: NORMAL INSPECTION - Neurological Exam Neurological Exam: Alert, Oriented x3 Additional comments: No motor/sensory deficit., no facial droop, no aphasia. 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
--- NOTE | 2017-12-10 22:15 | CP.PCM.PN ---
Subjective - Date & Time of Evaluation Date of Evaluation: 12/10/17 Time of Evaluation: 16:00 - Subjective Subjective: Feeling better. Objective - Vital Signs/Intake and Output Vital Signs (last 24 hours): Temp Pulse Resp BP Pulse Ox 99 F 97 H 12 134/83 99 12/10/17 20:00 12/10/17 20:00 12/10/17 20:00 12/10/17 20:00 12/10/17 20:00 Intake and Output: 12/10/17 12/11/17 18:59 06:59 Intake Total 987 11 Output Total 1100 Balance -113 11 - Medications Medications: Current Medications Acetaminophen (Tylenol 325mg Tab) 650 mg PO Q6 PRN PRN Reason: Pain, Mild (1-3) Last Admin: 12/10/17 19:11 Dose: 650 mg Aspirin (Aspirin Chewable) 81 mg PO DAILY [facility] Last Admin: 12/10/17 08:07 Dose: 81 mg Atorvastatin Calcium (Lipitor) 10 mg PO DAILY [facility] Last Admin: 12/10/17 08:06 Dose: 10 mg Heparin Sodium/Dextrose (Heparin 25,000 Units/250ml In D5w) 25,000 units in 250 mls @ 11 mls/hr IV .[id number] [facility] PRN Reason: Protocol Metoprolol Succinate (Toprol Xl) 25 mg PO DAILY [facility] Last Admin: 12/10/17 08:05 Dose: 25 mg Morphine Sulfate (Morphine) 2 mg IVP Q6 PRN PRN Reason: Pain, moderate (4-7) - Labs Labs: 12/10/17 04:40 12/10/17 04:40 PT 10.8 Seconds (9.8-13.1) 12/10/17 04:40 INR 1.0 (0.9-1.2) 12/10/17 04:40 APTT 63.6 Seconds (25.6-37.1) H 12/10/17 04:40 - Head Exam Head Exam: ATRAUMATIC - Eye Exam Eye Exam: Normal appearance - ENT Exam ENT Exam: Mucous Membranes Dry - Respiratory Exam Respiratory Exam: NORMAL BREATHING PATTERN - Cardiovascular Exam Cardiovascular Exam: +S1, +S2 - GI/Abdominal Exam GI & Abdominal Exam: Normal Bowel Sounds Assessment and Plan (1) Bilateral pulmonary embolism Assessment & Plan: with DVT recurrent venous clotting on therapeutic anticoagulation f/u thrombophilia w/u lifelong anticoagulation Status: Acute (2) Coagulopathy Assessment & Plan: anticoagulation Status: Acute
[2017-12-11] MEDS ORDERED: Apap-Butalbital-Caffeine 325-50-40mg Tab PO STA (00:05)
[2017-12-11 06:11] LABS: BASO % 0.1 % (0.0-2.0); LYMPH # 1.8 K/uL (1.0-4.3); LYMPH % 14.3 % (20.0-40.0); MEAN CELL VOLUME 93.1 fl (81.0-99.0); MEAN CORPUSCULAR HEMOGLOBIN 32.2 pg (27.0-31.0); MEAN CORPUSCULAR HGB CONC 34.5 g/dL (33.0-37.0); MEAN PLATELET VOLUME 7.9 fl (7.2-11.7); MONO # 0.5 K/uL (0.0-0.8); MONO % 4.3 % (0.0-10.0); NEUT % 81.3 % (50.0-75.0); NRBC % 0.1 % (0.0-0.0); RBC 4.36 Mil/uL (3.80-5.20); RED CELL DISTRIBUTION WIDTH 13.4 % (11.5-14.5); WHITE BLOOD COUNT 12.3 K/uL (4.8-10.8)
[2017-12-11 06:21] LABS: BLOOD UREA NITROGEN 14 mg/dl (7-17); GFR AFRICAN-AMERICAN > 60; GFR NON-AFRICAN AMERICAN > 60
[2017-12-11] MEDS: Metoprolol Succinate 25 mg XL Tab PO SCH (08:22)
--- NOTE | 2017-12-11 09:16 | CP.PCM.CON ---
History of Present Illness - History of Present Illness History of Present Illness: Psychiatry consult called to evaluate for depression CC: "I'm depressed." HPI: 57 yo female, w/ h/o HTN, DVT of LLE, initially presented w/ LLE pain, chest pain and dizziness, found to have a b/l PE during ICU admission. 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 +Depressed mood +Anxiety +Sleep disturbances +Overeating + Anhedonia +Feelings of hopelessness. NO AH/VH/paranoia/delusions/SI/HI. PPHx: H/o of psychiatric treatment w/ medications in the past several years ago after her mother , she does not recall the medication she took. No h/o inpatient psychiatric admissions or suicide attempts. PMH: HTN; HLD; Osteoporesis; Arthritis of the right knee with intra-articular injections; DVT of the Left lower extremity October 2016; DC 09/2016 PSH: Left Hernia repair; Hysterectomy; B/L Breast Implant calcified SH: From [facility]; lives w/ romantic partner; 3 adult children. 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 No acute inpatient psychiatric admission indicated. -Start Zoloft 50 mg PO Daily -Outpatient psychiatric follow-up Past Patient History - Past Medical History & Family History Past Medical History?: Yes - Past Social History Smoking Status: Heavy Smoker > 10 Cigarettes Daily Chewing Tobacco Use: No Cigar Use: No Alcohol: Occasional Home Situation {Lives}: With Family - CARDIAC Hx Hypercholesterolemia: Yes Hx Hypertension: Yes - PULMONARY Hx Respiratory Disorders: No - NEUROLOGICAL Hx Neurological Disorder: No - HEENT Hx HEENT Problems: No - RENAL Hx Chronic Kidney Disease: No - ENDOCRINE/METABOLIC Hx Endocrine Disorders: No - HEMATOLOGICAL/ONCOLOGICAL Other/Comment: Left leg DVT - INTEGUMENTARY Hx Cellulitis: Yes (2013 s/p fall) - MUSCULOSKELETAL/RHEUMATOLOGICAL Hx Back Pain: Yes Hx Osteoporosis: Yes - GASTROINTESTINAL Hx Gastrointestinal Disorders: No - GENITOURINARY/GYNECOLOGICAL Hx Genitourinary Disorders: No - PSYCHIATRIC Hx Anxiety: Yes Hx Depression: Yes Hx Substance Use: No - SURGICAL HISTORY Hx Herniorrhaphy: Yes (left Hernia repair) Hx Hysterectomy: Yes Other/Comment: bilateral breast implant - ANESTHESIA Hx Anesthesia: Yes Hx Anesthesia Reactions: No Meds Allergies/Adverse Reactions: Allergies Allergy/AdvReac Type Severity Reaction Status Date / Time No Known Allergies Allergy Verified 12/08/17 20:06 - Medications Medications: Current Medications Acetaminophen (Tylenol 325mg Tab) 650 mg PO Q6 PRN PRN Reason: Pain, Mild (1-3) Last Admin: 12/10/17 19:11 Dose: 650 mg Aspirin (Aspirin Chewable) 81 mg PO DAILY [facility] Last Admin: 12/11/17 08:18 Dose: 81 mg Atorvastatin Calcium (Lipitor) 10 mg PO DAILY [facility] Last Admin: 12/11/17 08:22 Dose: 10 mg Heparin Sodium/Dextrose (Heparin 25,000 Units/250ml In D5w) 25,000 units in 250 mls @ 11 mls/hr IV .[id number] [facility] PRN Reason: Protocol Last Admin: 12/10/17 23:51 Dose: 11 mls/hr Metoprolol Succinate (Toprol Xl) 25 mg PO DAILY [facility] Last Admin: 12/11/17 08:22 Dose: 25 mg Morphine Sulfate (Morphine) 2 mg IVP Q6 PRN PRN Reason: Pain, moderate (4-7) Last Admin: 12/11/17 02:04 Dose: 2 mg Results - Vital Signs Recent Vital Signs: Last Vital Signs Temp 97.9 F 12/11/17 08:00 Pulse 77 12/11/17 08:22 Resp 20 12/11/17 08:00 BP 122/70 12/11/17 08:22 Pulse Ox 96 12/11/17 08:00 - Labs Result Diagrams: 12/11/17 04:30 12/11/17 04:30 Labs: Laboratory Results - last 24 hr 12/08/17 12/11/17 12/11/17 20:52 04:30 04:30 WBC 12.3 H D RBC 4.36 Hgb 14.0 Hct 40.6 MCV 93.1 MCH 32.2 H MCHC 34.5 RDW 13.4 Plt Count 214 MPV 7.9 Neut % (Auto) 81.3 H Lymph % (Auto) 14.3 L [place] % (Auto) 4.3 Eos % (Auto) 0.0 Baso % (Auto) 0.1 Neut # (Auto) 10.0 H Lymph # (Auto) 1.8 [place] # (Auto) 0.5 Eos # (Auto) 0.0 Baso # (Auto) 0.0 APTT Sodium 142 Potassium 4.2 Chloride 106 Carbon Dioxide 22 Anion Gap 18 BUN 14 Creatinine 0.5 L Est GFR ( Amer) > 60 Est GFR (Non-Af Amer) > 60 Random Glucose 133 H Hemoglobin A1c 5.8 Calcium 9.0 12/11/17 04:30 WBC RBC Hgb Hct MCV MCH MCHC RDW Plt Count MPV Neut % (Auto) Lymph % (Auto) [place] % (Auto) Eos % (Auto) Baso % (Auto) Neut # (Auto) Lymph # (Auto) [place] # (Auto) Eos # (Auto) Baso # (Auto) APTT 56.0 H D Sodium Potassium Chloride Carbon Dioxide Anion Gap BUN Creatinine Est GFR ( Amer) Est GFR (Non-Af Amer) Random Glucose Hemoglobin A1c Calcium
--- NOTE | 2017-12-11 16:05 | CP.PCM.PN ---
Subjective - Date & Time of Evaluation Date of Evaluation: 12/11/17 Time of Evaluation: 14:30 - Subjective Subjective: F/U PE No SOB , no Chest pain , no palpitations , no LLE pain , depression Objective - Vital Signs/Intake and Output Vital Signs (last 24 hours): Temp Pulse Resp BP Pulse Ox 98.0 F 70 20 114/72 95 12/11/17 12:34 12/11/17 14:00 12/11/17 14:00 12/11/17 14:00 12/11/17 14:00 Intake and Output: 12/11/17 12/11/17 06:59 18:59 Intake Total 121 240 Balance 121 240 - Medications Medications: Current Medications Acetaminophen (Tylenol 325mg Tab) 650 mg PO Q6 PRN PRN Reason: Pain, Mild (1-3) Last Admin: 12/10/17 19:11 Dose: 650 mg Apixaban (Eliquis) 10 mg PO BID [facility] PRN Reason: Protocol Stop: 12/19/17 09:00 Apixaban (Eliquis) 5 mg PO BID [facility] PRN Reason: Protocol Aspirin (Aspirin Chewable) 81 mg PO DAILY [facility] Last Admin: 12/11/17 08:18 Dose: 81 mg Atorvastatin Calcium (Lipitor) 10 mg PO DAILY [facility] Last Admin: 12/11/17 08:22 Dose: 10 mg Metoprolol Succinate (Toprol Xl) 25 mg PO DAILY [facility] Last Admin: 12/11/17 08:22 Dose: 25 mg Morphine Sulfate (Morphine) 2 mg IVP Q6 PRN PRN Reason: Pain, moderate (4-7) Last Admin: 12/11/17 02:04 Dose: 2 mg Sertraline HCl (Zoloft) 50 mg PO DAILY [facility] Last Admin: 12/11/17 11:46 Dose: 50 mg - Labs Labs: 12/11/17 04:30 12/11/17 04:30 PT 10.8 Seconds (9.8-13.1) 12/10/17 04:40 INR 1.0 (0.9-1.2) 12/10/17 04:40 APTT 56.0 Seconds (25.6-37.1) H D 12/11/17 04:30 - Constitutional Appears: No Acute Distress, Chronically Ill - Head Exam Head Exam: NORMAL INSPECTION - Eye Exam Eye Exam: PERRL - ENT Exam ENT Exam: Normal Exam - Neck Exam Neck Exam: Normal Inspection - Respiratory Exam Respiratory Exam: Decreased Breath Sounds (b/l) - Cardiovascular Exam Cardiovascular Exam: REGULAR RHYTHM - GI/Abdominal Exam GI & Abdominal Exam: Soft, Normal Bowel Sounds - Extremities Exam Extremities Exam: Tenderness (L leg) - Back Exam Back Exam: NORMAL INSPECTION - Neurological Exam Neurological Exam: Alert, Oriented x3 Additional comments: No motor/ sensory deficit. - Psychiatric Exam Psychiatric exam: Normal Mood - Skin Skin Exam: Warm Assessment and Plan (1) Bilateral pulmonary embolism Status: Acute (2) Left leg DVT Status: Acute (3) TIA (transient ischemic attack) Status: Acute (4) Dehydration Status: Acute (5) Hypercholesterolemia Status: Chronic (6) HTN (hypertension) Status: Chronic (7) Depression Status: Acute - Assessment and Plan (Free Text) Plan: Patient on Heparin drip, call Hematology budget consultant , plans to switch to po anticoagulation, Patient was off Eliquis for the past month and DVT and P/ E, Patient was seen by Psychiatric budget consultant , She was started on Zoloft , continue rest of treatment
[2017-12-11] MEDS ORDERED: Heparin 25,000units in D5W 25,000 UNITS/250 ML BAG IV SCH (18:00)
--- NOTE | 2017-12-11 18:08 | US ---
PROCEDURE: Duplex ultrasound of the carotid and vertebral arteries. HISTORY: TIA COMPARISON: None available. TECHNIQUE: Grayscale and duplex Doppler evaluation of the cervical carotid and vertebral arteries were performed. The common carotid, carotid bifurcations and cervical ICA and proximal ECA were evaluated. The vertebral arteries were evaluated for gross patency and direction. FINDINGS: The carotid and vertebral arteries are tortuous. There is normal color flow. RIGHT CAROTID ARTERIES: Common Carotid Artery: Normal. Maximal flow velocity of 80.1 cm/s. Carotid Bifurcation: Normal. Internal Carotid Artery:Normal. Maximal flow velocity of 88.6 cm/s. External Carotid Artery (proximal branches): Normal. Maximal flow velocity of 98.0 cm/s. ICA/CCA Ratio: 1.7 LEFT CAROTID ARTERIES: Common Carotid Artery: Normal. Maximal flow velocity of 63.8 cm/s. Carotid Bifurcation: Normal. Internal Carotid Artery:Normal. Maximal flow velocity of 82.9 cm/s. External Carotid Artery (proximal branches): Normal. Maximal flow velocity of 89.3 cm/s. ICA/CCA Ratio: 1.3 VERTEBRAL ARTERIES: Right Vertebral Artery: Patent. Antegrade flow. Left Vertebral Artery: Patent. Antegrade flow. OTHER FINDINGS: None. IMPRESSION: No evidence of hemodynamically significant stenosis in the internal carotid arteries. Patent bilateral vertebral arteries with antegrade flow.
--- NOTE | 2017-12-11 21:09 | PN ---
CRITICAL CARE PROGRESS NOTE DATE: 12/11/2017 LOCATION: The patient in ICU, bed 434. TIME SPENT: 35 minutes. SUBJECTIVE: The patient is seen and evaluated at the bedside. Past medical, surgical, family, and social history reviewed. A 57-year-old female, moderately obese, history of deep venous thrombosis of the left lower extremity in 2017, treated with Eliquis, status post recently discontinued, admitted with pain and swelling of left lower extremity, noted to have DVT left lower extremity associated with bilateral PE, currently on anticoagulation. Overnight, normotensive and afebrile. No cardiac arrhythmia noted in telemetry. This morning; alert, awake, and follows commands appropriate. Complaining of feeling dizzy at times, feeling discomfort in the chest. On further interrogation, the patient becomes more emotionally labile, cry, and reports her poor relationship with long, male friend, and seen by Psych consult and recommends Zoloft for underlying major depression. OBJECTIVE: VITAL SIGNS: Temperature 98, heart rate 87 and regular, blood pressure 110/60, mean arterial pressure 76, and oxygen saturation 98%. Intake 1108, output 1100 and positive balance 8 mL and weight 195 pounds. HEAD, EYES, EARS, NOSE AND THROAT: Pupils are reactive. Conjunctivae pink. Sclerae are white. NECK: Supple. Trachea is central. CHEST: Bilateral breath sounds clear to auscultation. HEART: Rhythm regular. S1 and S2 normal in intensity. No S3, S4, gallop. No audible murmur. ABDOMEN: Bowel sounds present and soft. EXTREMITIES: Mildly swollen left lower extremity. Dorsalis pedis palpable, equal in intensity. NEUROLOGIC: Nonfocal. CURRENT MEDICATIONS: Zoloft 50 mg p.o. daily, metoprolol 25 mg p.o. daily, heparin 2500 units in 250 mL at 1100 units per hour, Lipitor 10 mg p.o. daily, aspirin 81 mg p.o. daily, and Tylenol 650 every 6 hours p.r.n. LABORATORY DATA: WBC 12.3, hemoglobin 14, hematocrit 40.6, platelet count , neutrophils 81.3, lymphocytes 14.3, and monocytes 4.3. PTT 56. D-dimer 2644. ABG; pH of 7.40, pCO2 of 43, pO2 of 69, and oxygen saturation 96.6 on room air. SMA-7; sodium 142, potassium 4.2, chloride 106, CO2 of 22, blood urea nitrogen 14, creatinine 0.5, and random glucose 133. Urinalysis negative. Microbiology, nasal smear MRSA negative. Brain MRI unremarkable. Head and neck CTA, nonsignificant carotid artery stenosis. Chest CT consistent with bilateral PE. Carotid ultrasound report pending. IMPRESSION AND PLAN: 1. Neurologic: Alert, awake, and follows commands appropriate. 2. Psychiatric: Major depression. Seen by psychiatrist, on Zoloft 50 mg p.o. daily. 3. Cardiac: Normotensive. Telemetry sinus rhythm, on metoprolol. 4. Pulmonary: Status post bilateral pulmonary embolism secondary to deep venous thrombosis left lower extremity recurrent, seen by Hematology consult. Recommend long-term anticoagulation. Currently on heparin to switch over to new oral anticoagulants. We will discuss with PMD/Pulmonary email production consultant. 5. Gastrointestinal: No acute issues. 6. Renal: No acute issues. No electrolyte abnormalities noted. 7. Hematology: Leukocytosis compared to white blood cell on admission. We will follow the trend, hold antibiotics now as there is no clear evidence of infection. Keep the head of bed 30 degrees up. Closely monitor urine output. Continue deep venous thrombosis prophylaxis with heparin and gastrointestinal prophylaxis. Olegario Guallpa MD
[2017-12-12 05:46] LABS: BASO % 0.3 % (0.0-2.0); EOS # 0.1 K/uL (0.0-0.7); EOS % 0.9 % (0.0-4.0); HEMOGLOBIN 14.2 g/dL (12.0-16.0); LYMPH # 4.2 K/uL (1.0-4.3); LYMPH % 42.4 % (20.0-40.0); MEAN CELL VOLUME 94.4 fl (81.0-99.0); MEAN CORPUSCULAR HEMOGLOBIN 32.4 pg (27.0-31.0); MEAN CORPUSCULAR HGB CONC 34.3 g/dL (33.0-37.0); MEAN PLATELET VOLUME 7.7 fl (7.2-11.7); MONO # 0.6 K/uL (0.0-0.8); MONO % 5.7 % (0.0-10.0); NEUT # 5.1 K/uL (1.8-7.0); NEUT % 50.7 % (50.0-75.0); NRBC % 0.2 % (0.0-0.0); RBC 4.37 Mil/uL (3.80-5.20); RED CELL DISTRIBUTION WIDTH 13.4 % (11.5-14.5)
[2017-12-12 05:58] LABS: BLOOD UREA NITROGEN 14 mg/dl (7-17); CALCIUM 8.7 mg/dL (8.4-10.2); GFR AFRICAN-AMERICAN > 60; GFR NON-AFRICAN AMERICAN > 60
[2017-12-12] MEDS: Metoprolol Succinate 25 mg XL Tab PO SCH (09:00)
--- NOTE | 2017-12-12 09:30 | CP.CCUPN ---
CCU Subjective - Physician Review Events Since Last Encounter (Free Text): 12/12/17 13:12 The patient was Seen/interviewed and examined by me at the bedside during ICU round, Events reviewed, Clinically and hemodynamically improved Awake, comfortable, NAD O2 sat 100%. on O2 supplement Denies any chest pain, SOB or Palpitations Afebrile, NSR on the monitor CCU Objective - Vital Signs / Intake & Output Vital Signs (Last 4 hours): Vital Signs Temp Pulse Resp BP Pulse Ox 12/12/17 09:00 69 120/70 12/12/17 08:00 97.8 F 74 22 120/70 97 12/12/17 06:00 55 L 15 95/61 L 99 Intake and Output (Last 8hrs): Intake & Output 12/11/17 12/12/17 12/12/17 22:59 06:59 14:59 Intake Total 165 88 Output Total 300 Balance -135 88 Intake: IV 165 88 Output: Urine 300 Urine, Voided 300 Other: # Voids Urine, Voided 1 2 - Physical Exam Head: Positive for: Atraumatic, Normocephalic Pupils: Positive for: PERRL Extroacular Muscles: Positive for: EOMI Conjunctiva: Positive for: Normal Mouth: Positive for: Dry Nose (External): Positive for: Atraumatic Neck: Positive for: Normal Range of Motion Respiratory/Chest: Positive for: Clear to Auscultation Cardiovascular: Positive for: Regular Rate and Rhythm Abdomen: Positive for: Normal Bowel Sounds Upper Extremity: Positive for: Normal Inspection Lower Extremity: Positive for: Normal Inspection Neurological: Positive for: GCS=15, Speech Normal Psychiatric: Positive for: Alert, Oriented x 3 - Medications Active Medications: Active Medications Generic Name Dose Route Start Last Admin Trade Name Freq PRN Reason Stop Dose Admin Acetaminophen 650 mg 12/09/17 00:53 12/10/17 19:11 Tylenol 325mg Tab PO 650 mg Q6 PRN Administration Pain, Mild (1-3) Apixaban 10 mg 12/12/17 09:00 12/12/17 09:00 Eliquis PO 12/19/17 09:00 10 mg BID JOSPEH Administration Protocol Apixaban 5 mg 12/19/17 09:00 Eliquis PO BID JOSEPH Protocol Aspirin 81 mg 12/09/17 09:00 12/12/17 09:00 Aspirin Chewable PO 81 mg DAILY JOSEPH Administration Atorvastatin Calcium 10 mg 12/09/17 09:00 12/12/17 09:00 Lipitor PO 10 mg DAILY JOSEPH Administration Heparin Sodium/Dextrose 25,000 units in 250 mls @ 11 mls/hr 12/11/17 18:00 18:47 Heparin 25,000 Units/250ml In D5w IV 11 mls/hr .[id number] JOSEPH Administration Protocol Metoprolol Succinate 25 mg 12/10/17 09:00 12/12/17 09:00 Toprol Xl PO 25 mg DAILY JOSEPH Administration Morphine Sulfate 2 mg 12/09/17 00:52 12/11/17 02:04 Morphine IVP 2 mg Q6 PRN Administration Pain, moderate (4-7) Sertraline HCl 50 mg 12/11/17 10:30 12/12/17 09:03 Zoloft PO 50 mg DAILY JOSEPH Administration - Patient Studies Lab Studies: Lab Studies 12/12/17 12/12/17 12/12/17 Range/Units 05:55 04:40 04:40 WBC 10.0 (4.8-10.8) K/uL RBC 4.37 (3.80-5.20) Mil/uL Hgb 14.2 (12.0-16.0) g/dL Hct 41.3 (34.0-47.0) % MCV 94.4 (81.0-99.0) fl MCH 32.4 H (27.0-31.0) pg MCHC 34.3 (33.0-37.0) g/dL RDW 13.4 (11.5-14.5) % Plt Count 211 (130-400) K/uL MPV 7.7 (7.2-11.7) fl Neut % (Auto) 50.7 (50.0-75.0) % Lymph % (Auto) 42.4 H (20.0-40.0) % [place] % (Auto) 5.7 (0.0-10.0) % Eos % (Auto) 0.9 (0.0-4.0) % Baso % (Auto) 0.3 (0.0-2.0) % Neut # (Auto) 5.1 (1.8-7.0) K/uL Lymph # (Auto) 4.2 (1.0-4.3) K/uL [place] # (Auto) 0.6 (0.0-0.8) K/uL Eos # (Auto) 0.1 (0.0-0.7) K/uL Baso # (Auto) 0.0 (0.0-0.2) K/uL APTT 52.5 H (25.6-37.1) Seconds Sodium 142 (132-148) mmol/l Potassium 4.0 (3.6-5.0) MMOL/L Chloride 104 (98-107) mmol/L Carbon Dioxide 25 (22-30) mmol/L Anion Gap 17 (10-20) BUN 14 (7-17) mg/dl Creatinine 0.5 L (0.7-1.2) mg/dl Est GFR ( Amer) > 60 Est GFR (Non-Af Amer) > 60 POC Glucose (mg/dL) (65-110) mg/dL Random Glucose 98 (65-105) mg/dL Calcium 8.7 (8.4-10.2) mg/dL 12/11/17 Range/Units 11:07 WBC (4.8-10.8) K/uL RBC (3.80-5.20) Mil/uL Hgb (12.0-16.0) g/dL Hct (34.0-47.0) % MCV (81.0-99.0) fl MCH (27.0-31.0) pg MCHC (33.0-37.0) g/dL RDW (11.5-14.5) % Plt Count (130-400) K/uL MPV (7.2-11.7) fl Neut % (Auto) (50.0-75.0) % Lymph % (Auto) (20.0-40.0) % [place] % (Auto) (0.0-10.0) % Eos % (Auto) (0.0-4.0) % Baso % (Auto) (0.0-2.0) % Neut # (Auto) (1.8-7.0) K/uL Lymph # (Auto) (1.0-4.3) K/uL [place] # (Auto) (0.0-0.8) K/uL Eos # (Auto) (0.0-0.7) K/uL Baso # (Auto) (0.0-0.2) K/uL APTT (25.6-37.1) Seconds Sodium (132-148) mmol/l Potassium (3.6-5.0) MMOL/L Chloride (98-107) mmol/L Carbon Dioxide (22-30) mmol/L Anion Gap (10-20) BUN (7-17) mg/dl Creatinine (0.7-1.2) mg/dl Est GFR ( Amer) Est GFR (Non-Af Amer) POC Glucose (mg/dL) 156 H (65-110) mg/dL Random Glucose (65-105) mg/dL Calcium (8.4-10.2) mg/dL Laboratory Results - last 24 hr 12/11/17 12/12/17 12/12/17 11:07 04:40 04:40 WBC 10.0 RBC 4.37 Hgb 14.2 Hct 41.3 MCV 94.4 MCH 32.4 H MCHC 34.3 RDW 13.4 Plt Count 211 MPV 7.7 Neut % (Auto) 50.7 Lymph % (Auto) 42.4 H [place] % (Auto) 5.7 Eos % (Auto) 0.9 Baso % (Auto) 0.3 Neut # (Auto) 5.1 Lymph # (Auto) 4.2 [place] # (Auto) 0.6 Eos # (Auto) 0.1 Baso # (Auto) 0.0 APTT Sodium 142 Potassium 4.0 Chloride 104 Carbon Dioxide 25 Anion Gap 17 BUN 14 Creatinine 0.5 L Est GFR ( Amer) > 60 Est GFR (Non-Af Amer) > 60 POC Glucose (mg/dL) 156 H Random Glucose 98 Calcium 8.7 12/12/17 05:55 WBC RBC Hgb Hct MCV MCH MCHC RDW Plt Count MPV Neut % (Auto) Lymph % (Auto) [place] % (Auto) Eos % (Auto) Baso % (Auto) Neut # (Auto) Lymph # (Auto) [place] # (Auto) Eos # (Auto) Baso # (Auto) APTT 52.5 H Sodium Potassium Chloride Carbon Dioxide Anion Gap BUN Creatinine Est GFR ( Amer) Est GFR (Non-Af Amer) POC Glucose (mg/dL) Random Glucose Calcium Fingerstick Blood Sugar Results: 88 Critical Care Progress Note - Extremities/Vascular Does the Patient have a Central Venous Catheter?: No Does the Patient need a Central Venous Catheter?: No Does the Patient have a Whitehead Catheter?: No Does the Patient need a Whitehead Catheter?: No - Nutrition Nutrition: Nutrition Category Date Time Status Heart Healthy Diet [DIET] Diets 12/09/17 Breakfast Active Assessment/Plan (1) Bilateral pulmonary embolism Current Visit: Yes Status: Acute Priority: High (2) Coagulopathy Current Visit: Yes Status: Acute (3) DVT (deep venous thrombosis) Current Visit: Yes Status: Acute - Assessment and Plan (Free Text) Assessment: Respiratory insufficiency, PE, DVT, HTN, ?TIA, dehydration - Continue meds, anticoagulation - O2 supplement - Neurology follow up - BP control
--- NOTE | 2017-12-12 12:07 | CP.PCM.PN ---
Subjective - Date & Time of Evaluation Date of Evaluation: 12/12/17 Time of Evaluation: 12:00 - Subjective Subjective: Feeling better, tired started on ELiquis, heparin drip discontinued Objective - Vital Signs/Intake and Output Vital Signs (last 24 hours): Temp Pulse Resp BP Pulse Ox 97.8 F 69 22 120/70 97 12/12/17 08:00 12/12/17 09:00 12/12/17 08:00 12/12/17 09:00 12/12/17 08:00 Intake and Output: 12/12/17 12/12/17 06:59 18:59 Intake Total 121 262 Output Total 300 Balance 121 -38 - Medications Medications: Current Medications Acetaminophen (Tylenol 325mg Tab) 650 mg PO Q6 PRN PRN Reason: Pain, Mild (1-3) Last Admin: 12/10/17 19:11 Dose: 650 mg Apixaban (Eliquis) 10 mg PO BID [facility] PRN Reason: Protocol Stop: 12/19/17 09:00 Last Admin: 12/12/17 09:00 Dose: 10 mg Apixaban (Eliquis) 5 mg PO BID [facility] PRN Reason: Protocol Aspirin (Aspirin Chewable) 81 mg PO DAILY [facility] Last Admin: 12/12/17 09:00 Dose: 81 mg Atorvastatin Calcium (Lipitor) 10 mg PO DAILY [facility] Last Admin: 12/12/17 09:00 Dose: 10 mg Metoprolol Succinate (Toprol Xl) 25 mg PO DAILY [facility] Last Admin: 12/12/17 09:00 Dose: 25 mg Morphine Sulfate (Morphine) 2 mg IVP Q6 PRN PRN Reason: Pain, moderate (4-7) Last Admin: 12/11/17 02:04 Dose: 2 mg Sertraline HCl (Zoloft) 50 mg PO DAILY [facility] Last Admin: 12/12/17 09:03 Dose: 50 mg - Labs Labs: 12/12/17 04:40 12/12/17 04:40 PT 10.8 Seconds (9.8-13.1) 12/10/17 04:40 INR 1.0 (0.9-1.2) 12/10/17 04:40 APTT 52.5 Seconds (25.6-37.1) H 12/12/17 05:55 - Head Exam Head Exam: ATRAUMATIC - Eye Exam Eye Exam: Normal appearance - ENT Exam ENT Exam: Mucous Membranes Dry - Respiratory Exam Respiratory Exam: NORMAL BREATHING PATTERN - Cardiovascular Exam Cardiovascular Exam: +S1, +S2 - GI/Abdominal Exam GI & Abdominal Exam: Normal Bowel Sounds Assessment and Plan (1) Bilateral pulmonary embolism Assessment & Plan: recurrent venous clotting was on heparin drip, now discontinued and started on Eliquis Status: Acute (2) Coagulopathy Assessment & Plan: anticoagulation Status: Acute
--- NOTE | 2017-12-12 16:35 | CP.PCM.PN ---
Subjective - Date & Time of Evaluation Date of Evaluation: 12/12/17 Time of Evaluation: 12:20 - Subjective Subjective: F/U PE No A/D, no c/o, no SOB, no left lower extremity pain. Objective - Vital Signs/Intake and Output Vital Signs (last 24 hours): Temp Pulse Resp BP Pulse Ox 98.4 F 77 18 124/77 99 12/12/17 15:57 12/12/17 15:57 12/12/17 15:57 12/12/17 15:57 12/12/17 15:57 Intake and Output: 12/12/17 12/12/17 06:59 18:59 Intake Total 121 262 Output Total 300 Balance 121 -38 - Medications Medications: Current Medications Acetaminophen (Tylenol 325mg Tab) 650 mg PO Q6 PRN PRN Reason: Pain, Mild (1-3) Last Admin: 12/10/17 19:11 Dose: 650 mg Apixaban (Eliquis) 10 mg PO BID [facility] PRN Reason: Protocol Stop: 12/19/17 09:00 Last Admin: 12/12/17 16:09 Dose: 10 mg Apixaban (Eliquis) 5 mg PO BID [facility] PRN Reason: Protocol Aspirin (Aspirin Chewable) 81 mg PO DAILY [facility] Last Admin: 12/12/17 09:00 Dose: 81 mg Atorvastatin Calcium (Lipitor) 10 mg PO DAILY [facility] Last Admin: 12/12/17 09:00 Dose: 10 mg Metoprolol Succinate (Toprol Xl) 25 mg PO DAILY [facility] Last Admin: 12/12/17 09:00 Dose: 25 mg Morphine Sulfate (Morphine) 2 mg IVP Q6 PRN PRN Reason: Pain, moderate (4-7) Last Admin: 12/11/17 02:04 Dose: 2 mg Sertraline HCl (Zoloft) 50 mg PO DAILY [facility] Last Admin: 12/12/17 09:03 Dose: 50 mg - Labs Labs: 12/12/17 04:40 12/12/17 04:40 PT 10.8 Seconds (9.8-13.1) 12/10/17 04:40 INR 1.0 (0.9-1.2) 12/10/17 04:40 APTT 52.5 Seconds (25.6-37.1) H 12/12/17 05:55 - Constitutional Appears: No Acute Distress, Chronically Ill - Head Exam Head Exam: NORMAL INSPECTION - Eye Exam Eye Exam: PERRL - ENT Exam ENT Exam: Normal Exam - Neck Exam Neck Exam: Normal Inspection - Respiratory Exam Respiratory Exam: Clear to Ausculation Bilateral - Cardiovascular Exam Cardiovascular Exam: REGULAR RHYTHM - GI/Abdominal Exam GI & Abdominal Exam: Soft, Normal Bowel Sounds - Extremities Exam Extremities Exam: absent: Tenderness - Back Exam Back Exam: NORMAL INSPECTION - Neurological Exam Neurological Exam: Alert, Oriented x3 Additional comments: No motor/sensory deficit, no facial droop, no aphasis. - Psychiatric Exam Psychiatric exam: Normal Mood - Skin Skin Exam: Warm Assessment and Plan (1) Bilateral pulmonary embolism Status: Acute (2) Left leg DVT Status: Acute (3) TIA (transient ischemic attack) Status: Acute (4) Dehydration Status: Acute (5) Hypercholesterolemia Status: Chronic (6) HTN (hypertension) Status: Chronic (7) Depression Status: Acute - Assessment and Plan (Free Text) Plan: Heparin drip was DC, start on Eliquis for transfer to Med-Surg floor.
[2017-12-13] MEDS ORDERED: DiphenhydrAMINE 12.5 mg/5 ml LIQ UD (5 ml) PO ONE (00:08)
[2017-12-13] MEDS: Metoprolol Succinate 25 mg XL Tab PO SCH (08:56)
--- NOTE | 2017-12-13 12:52 | CP.PCM.PN ---
Subjective - Date & Time of Evaluation Date of Evaluation: 12/13/17 Time of Evaluation: 11:30 - Subjective Subjective: No complaints. Objective - Vital Signs/Intake and Output Vital Signs (last 24 hours): Temp Pulse Resp BP Pulse Ox 97.6 F 59 L 18 114/64 96 12/13/17 08:09 12/13/17 08:56 12/13/17 08:09 12/13/17 08:09 12/13/17 08:09 - Medications Medications: Current Medications Acetaminophen (Tylenol 325mg Tab) 650 mg PO Q6 PRN PRN Reason: Pain, Mild (1-3) Last Admin: 12/10/17 19:11 Dose: 650 mg Apixaban (Eliquis) 10 mg PO BID [facility] PRN Reason: Protocol Stop: 12/19/17 09:00 Last Admin: 12/13/17 08:58 Dose: 10 mg Apixaban (Eliquis) 5 mg PO BID [facility] PRN Reason: Protocol Aspirin (Aspirin Chewable) 81 mg PO DAILY [facility] Last Admin: 12/13/17 08:56 Dose: 81 mg Atorvastatin Calcium (Lipitor) 10 mg PO DAILY [facility] Last Admin: 12/13/17 08:56 Dose: 10 mg Metoprolol Succinate (Toprol Xl) 25 mg PO DAILY [facility] Last Admin: 12/13/17 08:56 Dose: Not Given Morphine Sulfate (Morphine) 2 mg IVP Q6 PRN PRN Reason: Pain, moderate (4-7) Last Admin: 12/11/17 02:04 Dose: 2 mg Sertraline HCl (Zoloft) 50 mg PO DAILY [facility] Last Admin: 12/13/17 08:57 Dose: 50 mg - Labs Labs: 12/12/17 04:40 12/12/17 04:40 PT 10.8 Seconds (9.8-13.1) 12/10/17 04:40 INR 1.0 (0.9-1.2) 12/10/17 04:40 APTT 52.5 Seconds (25.6-37.1) H 12/12/17 05:55 - Head Exam Head Exam: ATRAUMATIC - Eye Exam Eye Exam: Normal appearance - ENT Exam ENT Exam: Mucous Membranes Dry - Respiratory Exam Respiratory Exam: NORMAL BREATHING PATTERN - Cardiovascular Exam Cardiovascular Exam: +S1, +S2 - GI/Abdominal Exam GI & Abdominal Exam: Normal Bowel Sounds Assessment and Plan (1) Bilateral pulmonary embolism Assessment & Plan: recurrent venous clotting on Eliquis for life Status: Acute (2) Coagulopathy Assessment & Plan: anticoagulation Status: Acute
--- NOTE | 2017-12-13 14:59 | CARD ---
APPROVED REPORT EXAM: Two-dimensional and M-mode echocardiogram with Doppler and color Doppler. Other Information Quality : AverageRhythm : NSR INDICATION CVA/TIA Hypertension/HCVD 2D DIMENSIONS IVSd1.30 (0.7-1.1cm)LVDd3.90 (3.9-5.9cm) LVOT Diameter1.87 (1.8-2.4cm)PWd0.98 (0.7-1.1cm) IVSs1.17 (0.8-1.2cm)LVDs3.95 (2.5-4.0cm) FS (%) 1.3 %PWs1.11 (0.8-1.2cm) M-Mode DIMENSIONS Left Atrium (MM)3.35 (2.5-4.0cm)IVSd1.03 (0.7-1.1cm) Aortic Root3.21 (2.2-3.7cm)LVDd4.06 (4.0-5.6cm) Aortic Cusp Exc.1.88 (1.5-2.0cm)PWd1.26 (0.7-1.1cm) IVSs1.29 cmFS (%) 46 % LVDs2.18 (2.0-3.8cm)PWs1.68 cm Mitral Valve MV E Darogxmc30.8cm/sMV DECEL [id number] A Ayqpyelv36.6cm/s MV VPE71vxR/A ratio0.8MVA (PHT)2.44cm2 TDI Lateral E' Peak V8.80cm/sMedial E' Peak V6.52cm/sE/Lateral E'5.2 E/Medial E'7.0 LEFT VENTRICLE The left ventricle is normal in size. There is normal left ventricular wall thickness. The left ventricular function is normal. The left ventricular ejection fraction is - 70%. There is normal LV segmental wall motion. Transmitral Doppler flow pattern is Grade I-abnormal relaxation pattern. No left ventricle thrombus noted on this study. There is no ventricular septal defect visualized. There is no left ventricular aneurysm. There is no mass noted in the left ventricle. RIGHT VENTRICLE The right ventricle is normal size. There is normal right ventricular wall thickness. The right ventricular systolic function is normal. ATRIA The left atrium size is normal. There is no thrombus suspected in the left atrium. The right atrium size is normal. The interatrial septum is intact with no evidence for an atrial septal defect. AORTIC VALVE The aortic valve is normal in structure. No aortic regurgitation is present. There is no aortic valvular stenosis. MITRAL VALVE The mitral valve is normal in structure. There is no evidence of mitral valve prolapse. There is no mitral valve stenosis. There is no mitral valve regurgitation noted. TRICUSPID VALVE The tricuspid valve is normal in structure. There is no tricuspid valve regurgitation noted. There is no tricuspid valve prolapse or vegetation. There is no tricuspid valve stenosis. PULMONIC VALVE The pulmonic valve is not well visualized. Doppler studies of the PV were not performed. GREAT VESSELS The aortic root is normal in size. The IVC is normal in size and collapses >50% with inspiration. PERICARDIAL EFFUSION The pericardium appears normal. There is no pleural effusion. <Conclusion> The left ventricle is normal in size and wall thickness. The left ventricular function is normal. The left ventricular ejection fraction is - 70%. The left atrium, right ventricle and right atrium are normal in size. The mitral, aortic and tricuspid valves are normal.
--- NOTE | 2017-12-13 16:00 | CP.PCM.DIS ---
Provider - Provider Date of Admission: 12/08/17 23:22 Attending physician: Kerwin Mills MD Diagnosis - Discharge Diagnosis (1) Bilateral pulmonary embolism Status: Acute Priority: High (2) Left leg DVT Status: Acute Priority: High (3) TIA (transient ischemic attack) Status: Acute Priority: High (4) Dehydration Status: Acute Priority: High (5) Hypercholesterolemia Status: Chronic Priority: Medium (6) HTN (hypertension) Status: Chronic Priority: Medium (7) Depression Status: Acute Hospital Course - Lab Results Lab Results: Micro Results 12/09/17 06:31 Naris MRSA Culture (Admit) - Final MRSA NOT DETECTED Most Recent Lab Values WBC 10.0 K/uL (4.8-10.8) 12/12/17 04:40 RBC 4.37 Mil/uL (3.80-5.20) 12/12/17 04:40 Hgb 14.2 g/dL (12.0-16.0) 12/12/17 04:40 Hct 41.3 % (34.0-47.0) 12/12/17 04:40 MCV 94.4 fl (81.0-99.0) 12/12/17 04:40 MCH 32.4 pg (27.0-31.0) H 12/12/17 04:40 MCHC 34.3 g/dL (33.0-37.0) 12/12/17 04:40 RDW 13.4 % (11.5-14.5) 12/12/17 04:40 Plt Count 211 K/uL (130-400) 12/12/17 04:40 MPV 7.7 fl (7.2-11.7) 12/12/17 04:40 Neut % (Auto) 50.7 % (50.0-75.0) 12/12/17 04:40 Lymph % (Auto) 42.4 % (20.0-40.0) H 12/12/17 04:40 [place] % (Auto) 5.7 % (0.0-10.0) 12/12/17 04:40 Eos % (Auto) 0.9 % (0.0-4.0) 12/12/17 04:40 Baso % (Auto) 0.3 % (0.0-2.0) 12/12/17 04:40 Neut # (Auto) 5.1 K/uL (1.8-7.0) 12/12/17 04:40 Lymph # (Auto) 4.2 K/uL (1.0-4.3) 12/12/17 04:40 [place] # (Auto) 0.6 K/uL (0.0-0.8) 12/12/17 04:40 Eos # (Auto) 0.1 K/uL (0.0-0.7) 12/12/17 04:40 Baso # (Auto) 0.0 K/uL (0.0-0.2) 12/12/17 04:40 PT 10.8 Seconds (9.8-13.1) 12/10/17 04:40 INR 1.0 (0.9-1.2) 12/10/17 04:40 APTT 52.5 Seconds (25.6-37.1) H 12/12/17 05:55 D-Dimer, Quantitative 2644 ng/mlDDU (0-230) H 12/08/17 20:52 pCO2 43 mm/Hg (35-45) 12/08/17 00:56 pO2 69 mm/Hg (80-100) L 12/08/17 00:56 HCO3 25.9 mmol/L (21-28) 12/08/17 00:56 ABG pH 7.40 (7.35-7.45) 12/08/17 00:56 ABG Total CO2 27.9 mmol/L (22-28) 12/08/17 00:56 ABG O2 Saturation 96.6 % (95-98) 12/08/17 00:56 ABG O2 Content 17.9 ML/dL (15-23) 12/08/17 00:56 ABG Base Excess 1.4 mmol/L (-2.0-3.0) 12/08/17 00:56 ABG Hemoglobin 13.9 g/dL (11.7-17.4) 12/08/17 00:56 ABG Carboxyhemoglobin 2.9 % (0.5-1.5) H 12/08/17 00:56 POC ABG HHb (Measured) 3.2 % (0.0-5.0) 12/08/17 00:56 ABG Methemoglobin 2.3 % (0.0-3.0) 12/08/17 00:56 ABG O2 Capacity 18.5 mL/dL (16-24) 12/08/17 00:56 Fuentes Test Yes 12/08/17 00:56 A-a O2 Difference 27.0 mm/Hg 12/08/17 00:56 Hgb O2 Saturation 91.6 % (95.0-98.0) L 12/08/17 00:56 FiO2 21.0 % 12/08/17 00:56 Sodium 142 mmol/l (132-148) 12/12/17 04:40 Potassium 4.0 MMOL/L (3.6-5.0) 12/12/17 04:40 Chloride 104 mmol/L (98-107) 12/12/17 04:40 Carbon Dioxide 25 mmol/L (22-30) 12/12/17 04:40 Anion Gap 17 (10-20) 12/12/17 04:40 BUN 14 mg/dl (7-17) 12/12/17 04:40 Creatinine 0.5 mg/dl (0.7-1.2) L 12/12/17 04:40 Est GFR ( Amer) > 60 12/12/17 04:40 Est GFR (Non-Af Amer) > 60 12/12/17 04:40 POC Glucose (mg/dL) 156 mg/dL (65-110) H 12/11/17 11:07 Random Glucose 98 mg/dL (65-105) 12/12/17 04:40 Hemoglobin A1c 5.8 % (4.2-6.5) 12/08/17 20:52 Calcium 8.7 mg/dL (8.4-10.2) 12/12/17 04:40 Total Bilirubin 0.6 mg/dl (0.2-1.3) 12/10/17 04:40 AST 22 U/L (14-36) 12/10/17 04:40 ALT 30 U/L (9-52) 12/10/17 04:40 Alkaline Phosphatase 89 U/L (38-126) 12/10/17 04:40 Troponin I < 0.0120 ng/mL (0.00-0.120) 12/08/17 20:52 Total Protein 7.3 G/DL (6.3-8.2) 12/10/17 04:40 Albumin 3.8 g/dL (3.5-5.0) 12/10/17 04:40 Globulin 3.4 gm/dL (2.2-3.9) 12/10/17 04:40 Albumin/Globulin Ratio 1.1 (1.0-2.1) 12/10/17 04:40 Triglycerides 169 mg/DL (0-149) H 12/08/17 20:52 Cholesterol 183 mg/dL (0-199) 12/08/17 20:52 LDL Cholesterol Direct 99 mg/dL (0-129) 12/08/17 20:52 HDL Cholesterol 56 MG/DL (30-70) 12/08/17 20:52 Urine Color Straw (YELLOW) 12/08/17 21:16 Urine Clarity Clear (Clear) 12/08/17 21:16 Urine pH 7.0 (5.0-8.0) 12/08/17 21:16 Ur Specific [place] 1.008 (1.003-1.030) 12/08/17 21:16 Urine Protein Negative mg/dL (NEGATIVE) 12/08/17 21:16 Urine Glucose (UA) Neg mg/dL (Normal) 12/08/17 21:16 Urine Ketones Negative mg/dL (NEGATIVE) 12/08/17 21:16 Urine Blood Negative (NEGATIVE) 12/08/17 21:16 Urine Nitrate Negative (NEGATIVE) 12/08/17 21:16 Urine Bilirubin Negative (NEGATIVE) 12/08/17 21:16 Urine Urobilinogen 0.2-1.0 mg/dL (0.2-1.0) 12/08/17 21:16 Ur Leukocyte Esterase Neg [place]/uL (Negative) 12/08/17 21:16 Urine RBC (Auto) < 1 /hpf (0-3) 12/08/17 21:16 Urine Microscopic WBC < 1 /hpf (0-5) 12/08/17 21:16 Ur Squamous Epith Cells 1 /hpf (0-5) 12/08/17 21:16 Blood Type O POSITIVE 12/08/17 20:47 Blood Type Confirm O POSITIVE 12/10/17 00:05 Antibody Screen Negative 12/08/17 20:47 BBK History Checked No verified bt 12/08/17 20:47 Discharge Exam - Head Exam Head Exam: ATRAUMATIC Discharge Plan - Discharge Medications Prescriptions: Apixaban [Eliquis] 10 mg PO BID #10 tab Apixaban [Eliquis] 5 mg PO BID #30 tab Sertraline [Zoloft] 50 mg PO DAILY #30 tab - Follow Up Plan Condition: SERIOUS Disposition: HOME/ ROUTINE Instructions: Deep Vein Thrombosis (Blood Clots in the Legs) (DC) Additional Instructions: hacer joyce con cleary primario y Dr. Maldonado dentro de 1 semana Referrals: Jacques Randhawa MD [Family Provider] - Tl Maldonado MD [Staff Provider] - Valentin Alarcon MD [Medical Doctor] -
[2017-12-13 16:21] VITALS: BP 124/76; PULSE 68; RESP 20; TEMP 98; O2SAT 92
[2017-12-13 22:48] LABS: CARDIOLIPIN AB (IGA) <11 APL (<=11); CARDIOLIPIN AB (IGG) <14 GPL (<=14)
[2017-12-13 23:27] LABS: PHOSPHATIDYLSERINE AB IGG <10 U/mL (<10); PHOSPHATIDYLSERINE AB IGM <25 U/mL (<25)
[2017-12-14 05:12] LABS: B2 GLYCOPROTEIN I AB(IGA) <9 SAU (<=20); B2 GLYCOPROTEIN I AB(IGG) <9 SGU (<=20); B2 GLYCOPROTEIN I AB(IGM) <9 SMU (<=20); CARDIOLIPIN AB (IGM) <12 MPL (<=12); PHOSPHATIDYLSERINE AB IGA <20 U/mL (<20)
== END 2017-12-13 19:11 | disposition home or self-care (01) | DRG 543 ==
LOC: H.ER 20:00 → H.ERHOLD 23:22 → H.ICU/CCU 12-09 01:06 → H.MEDSURG1 12-12 13:43
PROVIDERS: ADMIT Internal Medicine Pulmonary Disease; ATTEND Internal Medicine Pulmonary Disease
DX: I82.432 Acute embolism and thrombosis of left popliteal vein (principal); I26.99 Other pulmonary embolism without acute cor pulmonale; E86.0 Dehydration; J98.11 Atelectasis; D68.9 Coagulation defect, unspecified; D72.829 Elevated white blood cell count, unspecified; E78.00 Pure hypercholesterolemia, unspecified; E78.5 Hyperlipidemia, unspecified; F17.210 Nicotine dependence, cigarettes, uncomplicated; F32.9 Major depressive disorder, single episode, unspecified; G45.9 Transient cerebral ischemic attack, unspecified; I10 Essential (primary) hypertension; I25.10 Atherosclerotic heart disease of native coronary artery without angina pectoris; I25.2 Old myocardial infarction; M17.11 Unilateral primary osteoarthritis, right knee; M81.0 Age-related osteoporosis without current pathological fracture; Z79.899 Other long term (current) drug therapy; Z83.3 Family history of diabetes mellitus; Z86.711 Personal history of pulmonary embolism; Z86.718 Personal history of other venous thrombosis and embolism; Z90.710 Acquired absence of both cervix and uterus; Z98.82 Breast implant status; E66.9 Obesity, unspecified; Z68.33 Body mass index [BMI] 33.0-33.9, adult; F41.9 Anxiety disorder, unspecified; F45.9 Somatoform disorder, unspecified; M54.9 Dorsalgia, unspecified; M79.89 Other specified soft tissue disorders; R06.89 Other abnormalities of breathing

== ENCOUNTER 2018-09-05 19:25 | Emergency (ER) | payer SELFPAY ==
[2018-09-05 19:25] VITALS: BMI 29.9
[2018-09-05 19:42] VITALS: TEMP 98.2
[2018-09-05 20:50] LABS: BASO % 0.7 % (0.0-2.0); EOS # 0.3 K/uL (0.0-0.7); EOS % 7.4 % (0.0-4.0); HEMOGLOBIN 13.7 g/dL (12.0-16.0); LYMPH % 44.6 % (20.0-40.0); MEAN CELL VOLUME 93.8 fl (81.0-99.0); MEAN CORPUSCULAR HEMOGLOBIN 32.1 pg (27.0-31.0); MEAN CORPUSCULAR HGB CONC 34.2 g/dL (33.0-37.0); MEAN PLATELET VOLUME 7.7 fl (7.2-11.7); MONO # 0.5 K/uL (0.0-0.8); MONO % 10.6 % (0.0-10.0); NEUT # 1.7 K/uL (1.8-7.0); NEUT % 36.7 % (50.0-75.0); NRBC % 0.1 % (0.0-0.0); RBC 4.26 Mil/uL (3.80-5.20); RED CELL DISTRIBUTION WIDTH 13.2 % (11.5-14.5); WHITE BLOOD COUNT 4.6 K/uL (4.8-10.8)
--- NOTE | 2018-09-05 20:50 | ED PDOC ---
Lower Extremity Pain/Injury Time Seen by Provider: 09/05/18 19:54 Chief Complaint (Nursing): Lower Extremity Problem/Injury Chief Complaint (Provider): Lower Extremity Problem/Injury History Per: Patient History/Exam Limitations: no limitations Onset/Duration Of Symptoms: Days (x 7) Current Symptoms Are (Timing): Still Present Additional Complaint(s): 58 year old female with a history of DVT and PE presents to the ED for evaluation of lower left extremity swelling as well as calf and foot pain for the last week. Because of history, patient is currently taking Pradaxa. She was previously on Eliquis, but stopped in and has been given Prad axa samples by PMD since July. Denies other injury. PMD: Dr. Rodriges Past Medical History Reviewed: Historical Data, Nursing Documentation, Vital Signs Vital Signs: Last Vital Signs Temp 98.2 F 09/05/18 19:40 Pulse 91 H 09/05/18 19:40 Resp 16 09/05/18 19:40 BP 150/92 H 09/05/18 19:40 Pulse Ox 98 09/05/18 19:40 - Medical History PMH: Anxiety, CAD, Depression, Diabetes, Deep Vein Thrombosis, HTN, Hyperchol esterolemia, Osteoporosis Denies: Chronic Kidney Disease - Surgical History Surgical History: Hernia Repair - Family History Family History: States: Unknown Family Hx, CAD - Social History Current smoker - smoking cessation education provided: No Alcohol: None Drugs: Denies - Immunization History Hx Tetanus Toxoid Vaccination: Yes (2013) Hx Influenza Vaccination: No Hx Pneumococcal Vaccination: No - Home Medications Home Medications: Ambulatory Orders Medication Instructions Recorded Metoprolol Tartrate [Lopressor] 75 mg PO DAILY 12/08/17 Simvastatin [Zocor] 20 mg PO DAILY 12/08/17 Apixaban [Eliquis] 5 mg PO BID #30 tab 12/13/17 Apixaban [Eliquis] 10 mg PO BID #10 tab 12/13/17 Aspirin [Aspirin Chewable] 81 mg PO DAILY chew 12/13/17 Sertraline [Zoloft] 50 mg PO DAILY #30 tab 12/13/17 Alendronate [Fosamax] 70 mg PO 01/19/18 Ergocalciferol (Vitamin D2) 50,000 unit PO 01/19/18 [Vitamin D2] Sulfamethoxazole/Trimethoprim 1 tab PO BID #20 tab 09/05/18 [Bactrim DS 800 mg-160 mg] - Allergies Allergies/Adverse Reactions: Allergies Allergy/AdvReac Type Severity Reaction Status Date / Time No Known Allergies Allergy Verified 09/05/18 19:39 Review of Systems ROS Statement: Except As Marked, All Systems Reviewed And Found Negative Constitutional: Negative for: Fever Musculoskeletal: Positive for: Leg Pain (left leg swelling and pain to the foot and calf) Physical Exam - Reviewed Nursing Documentation Reviewed: Yes Vital Signs Reviewed: Yes - Physical Exam Appears: Positive for: Non-toxic, No Acute Distress Head Exam: Positive for: ATRAUMATIC, NORMAL INSPECTION, NORMOCEPHALIC Skin: Positive for: Normal Color, Warm, Dry Eye Exam: Positive for: Normal appearance, EOMI, PERRL Neck: Positive for: Normal, Painless ROM, Supple Cardiovascular/Chest: Positive for: Regular Rate, Rhythm. Negative for: Murmur Respiratory: Positive for: Normal Breath Sounds. Negative for: Respiratory Distress Gastrointestinal/Abdominal: Positive for: Normal Exam, Soft. Negative for: Tenderness, Mass, Guarding Extremity: Positive for: Normal ROM, Pedal Edema (3+ non-pitting edema, warm to the touch and mild erythematous), Capillary Refill (< 2 seconds), Other ((+) Nick's sign). Negative for: Calf Tenderness Neurologic/Psych: Positive for: Alert, Oriented (x 3). Negative for: Motor/Sensory Deficits - Laboratory Results Result Diagrams: 09/05/18 20:38 09/05/18 20:38 - ECG O2 Sat by Pulse Oximetry: 98 (RA) Pulse Ox Interpretation: Normal Medical Decision Making Medical Decision Makin:29 Impression: 58 year old female with LLE swelling in setting of previous DVT Initial Plan: --EKG --CBC --CMP --Lactic acid --PTT --PT --Blood cx --Toradol 15 mg IM --Duplex LLE US 22:13 US LLE FINDINGS: DEEP VEINS: The common femoral, superficial femoral, and popliteal veins are echolucent and compressible. There is normal color Doppler flow throughout. The visualized calf veins appear patent. SUPERFICIAL VEINS: The visualized greater saphenous vein is patent. SOFT TISSUES: No popliteal fossa cyst or other abnormalities. IMPRESSION: No deep venous thrombosis evident on left lower extremity examination. 23:28 Labs reviewed no clinically significant abnormalities. Patient is stable for discharge diagnosis is cellulitis of lower extremity. Patient has scheduled follow up with her PMD tomorrow. Return precautions provided. Scribe Attestation: Documented by Josefa Nichols acting as a scribe for Jaziel San MD Provider Scribe Attestation: All medical record entries made by the Scribe were at my direction and personally dictated by me. I have reviewed the chart and agree that the record accurately reflects my personal performance of the history, physical exam, medical decision making, and the department course for this patient. I have also personally directed, reviewed, and agree with the discharge instructions and disposition. Disposition - Clinical Impression Clinical Impression: Cellulitis of lower extremity - Patient ED Disposition Is Patient to be Admitted: No - Disposition Disposition: Routine/Home Disposition Time: 23:18 Condition: STABLE Additional Instructions: GARY SANTANA, thank you for letting us take care of you today. Your provider was Jaziel San MD and you were treated for LEG PAIN. The emergency medical care you received today was directed at your acute symptoms. If you were p rescribed any medication, please fill it and take as directed. It may take several days for your symptoms to resolve. Return to the Emergency Department if your symptoms worsen, do not improve, or if you have any other problems. Please contact your doctor or call one of the physicians/clinics you have been referred to that are listed on the Patient Visit Information form that is included in your discharge packet. Bring any paperwork you were given at discharge with you along with any medications you are taking to your follow up visit. Our treatment cannot replace ongoing medical care by a primary care provider outside of the emergency department. Thank you for allowing the [facility] team to be part of your care today. If you had an X-Ray or CT scan: A Radiologist will review the ED reading if any change in treatment is needed we will contact you. If you had a blood, urine, or wound culture: It will take several days for the results, if any change in treatment is needed we will contact you. If you had an STI test: It will take 48 hours for the results. Please call after 1 week if you have not heard back. Prescriptions: Sulfamethoxazole/Trimethoprim [Bactrim DS 800 mg-160 mg] 1 tab PO BID #20 tab Instructions: Cellulitis (Skin Infection), Adult (DC) Forms: [employer] (Argentine) Print Language: AZERI
[2018-09-05 20:58] LABS: PROTHROMBIN TIME 11.1 Seconds (9.8-13.1)
[2018-09-05 21:01] LABS: ALB/GLOB RATIO 1.2 (1.0-2.1); ALT/SGPT 34 U/L (9-52); AST/SGOT 38 U/L (14-36); BLOOD UREA NITROGEN 16 mg/dl (7-17); CALCIUM 9.3 mg/dL (8.4-10.2); GFR NON-AFRICAN AMERICAN > 60; PARTIAL THROMBOPLASTIN TIME 32.2 Seconds (25.6-37.1)
[2018-09-05 23:44] VITALS: BP 136/77; PULSE 87; RESP 18; O2SAT 100
--- NOTE | 2018-09-06 08:52 | CARD ---
APPROVED REPORT Date of service: 09/05/2018 EKG Measurement Heart [id number] <Conclusion> Normal sinus rhythm Normal ECG
--- NOTE | 2018-09-06 14:11 | US ---
Date of service: 09/05/2018 HISTORY: swelling. PRIORS: None. FINDINGS: 2-D, color and duplex Doppler analysis of the lower extremity venous circulation using routine protocol from the femoral veins through the popliteal veins. Venous compressibility: Normal. Flow and augmentation patterns: Normal. Visualized veins upper third of calf: Normal. Lara cyst: None. IMPRESSION: No sonographic or Doppler evidence for DVT in left lower extremity. Concordant findings (preliminary report) provided by [facility].
== END 2018-09-05 23:17 | disposition home or self-care (01) ==
LOC: H.ER 19:25
DX: L03.119 Cellulitis of unspecified part of limb (principal); E11.9 Type 2 diabetes mellitus without complications; Z86.59 Personal history of other mental and behavioral disorders; I10 Essential (primary) hypertension; Z82.49 Family history of ischemic heart disease and other diseases of the circulatory system; Z86.718 Personal history of other venous thrombosis and embolism; Z79.01 Long term (current) use of anticoagulants; M81.0 Age-related osteoporosis without current pathological fracture
CPT/HCPCS: 80053; 83605; 85025; 85610; 85730; 87040; 93005; 93971; 96374; 99284; J1885

== ENCOUNTER 2018-09-13 12:28 | Emergency (ER) | payer OTHER ==
[2018-09-13 12:29] VITALS: BMI 29.9
--- NOTE | 2018-09-13 14:09 | ED PDOC ---
Lower Extremity Pain/Injury Time Seen by Provider: 09/13/18 13:20 Chief Complaint (Nursing): Lower Extremity Problem/Injury Chief Complaint (Provider): Left Knee Pain History Per: Patient History/Exam Limitations: no limitations Onset/Duration Of Symptoms: Days (x2) Current Symptoms Are (Timing): Still Present Additional Complaint(s): 58 year old female presents to the ED for evaluation of atraumatic left knee pain for the past two days. Patient reports that one year ago she had XRs and an MRI done of the left knee which showed no cartilage. She states she has been taking Indomethacin with transient relief, but admits that it has been worsening the past few days because of increased stair use. Otherwise, denies trauma, chest pain, calf pain, and shortness of breath. Of note, patient notes she is on Pradaxa daily for previous DVT. PMD: Jacques Randhawa Past Medical History Reviewed: Historical Data, Nursing Documentation, Vital Signs Vital Signs: Last Vital Signs Temp 97.1 F L 09/13/18 13:01 Pulse 62 09/13/18 13:01 Resp 16 09/13/18 13:01 BP 100/61 09/13/18 13:01 Pulse Ox 99 09/13/18 13:01 - Medical History PMH: Anxiety, CAD, Depression, Diabetes, Deep Vein Thrombosis, HTN, Hypercholesterolemia, Osteoporosis Denies: Chronic Kidney Disease - Surgical History Surgical History: Hernia Repair - Family History Family History: States: Unknown Family Hx, CAD - Social History Current smoker - smoking cessation education provided: No - Immunization History Hx Tetanus Toxoid Vaccination: Yes (2013) Hx Influenza Vaccination: No Hx Pneumococcal Vaccination: No - Home Medications Home Medications: Ambulatory Orders Medication Instructions Recorded Metoprolol Tartrate [Lopressor] 75 mg PO DAILY 12/08/17 Simvastatin [Zocor] 20 mg PO DAILY 12/08/17 Apixaban [Eliquis] 5 mg PO BID #30 tab 12/13/17 Apixaban [Eliquis] 10 mg PO BID #10 tab 12/13/17 Aspirin [Aspirin Chewable] 81 mg PO DAILY chew 12/13/17 Sertraline [Zoloft] 50 mg PO DAILY #30 tab 12/13/17 Alendronate [Fosamax] 70 mg PO 01/19/18 Ergocalciferol (Vitamin D2) 50,000 unit PO 01/19/18 [Vitamin D2] Sulfamethoxazole/Trimethoprim 1 tab PO BID #20 tab 09/05/18 [Bactrim DS 800 mg-160 mg] Tramadol HCl [Ultram] 50 mg PO BID PRN #10 tablet 09/13/18 - Allergies Allergies/Adverse Reactions: Allergies Allergy/AdvReac Type Severity Reaction Status Date / Time No Known Allergies Allergy Verified 09/13/18 13:01 Review of Systems ROS Statement: Except As Marked, All Systems Reviewed And Found Negative Cardiovascular: Negative for: Chest Pain Respiratory: Negative for: Shortness of Breath Musculoskeletal: Positive for: Other (left knee pain). Negative for: Leg Pain (bilateral calf) Physical Exam - Reviewed Nursing Documentation Reviewed: Yes Vital Signs Reviewed: Yes - Physical Exam Appears: Positive for: No Acute Distress Pulses-Dorsalis Pedis (L): 2+ Pulses-Dorsalis Pedis (R): 2+ Extremity: Positive for: Normal ROM (full ROM actively of left knee), Tenderness (minimal tenderness and minimal swelling to left knee), Other (positive crepitus to left knee, without warmth or erythema). Negative for: Calf Tenderness (bilaterally) - ECG O2 Sat by Pulse Oximetry: 99 (RA) Pulse Ox Interpretation: Normal - Progress Condition: Re-examined, Improved Medical Decision Making Medical Decision Making: Time: 1331 Initial Impression: left knee pain Initial Plan: --Lidoderm 1 ea TD --Tylenol 975mg PO --Ultram 50mg PO --Patient advised to stop taking Indomethacin as she is also on Pradaxa. Informed that no imaging is necessary at this time since there is no new trauma. Instructed to follow up with ortho for further evaluation. --Pt. searched on [facility] which show no previous narcotic Rx. --Pt. informed of risks dependency when taking ultram and advised to only use it for breakthroough pain Scribe Attestation: Documented by Luciana Rdz, acting as a scribe for Olegario Rodriguez PA-C. Provider Scribe Attestation: All medical record entries made by the Scribe were at my direction and personally dictated by me. I have reviewed the chart and agree that the record accurately reflects my personal performance of the history, physical exam, medical decision making, and the department course for this patient. I have also personally directed, reviewed, and agree with the discharge instructions and disposition. Disposition - Clinical Impression Clinical Impression: Knee pain - Patient ED Disposition Is Patient to be Admitted: No - Disposition Referrals: Xavier Lund III, MD [Staff Provider] - [facility] [Outside] Disposition: Routine/Home Disposition Time: 13:45 Condition: IMPROVED Additional Instructions: FOLLOW UP WITH ORTHO FOR FURTHER EVALUATION RETURN TO ED IMMEDIATELY IF SYMPTOMS WORSEN GARY SANTANA, thank you for letting us take care of you today. Your provider was Dejuan Puentes MD and you were treated for LT KNEE PAIN. The emergency medical care you received today was directed at your acute symptoms. If you were prescribed any medication, please fill it and take as directed. It may take several days for your symptoms to resolve. Return to the Emergency Department if your symptoms worsen, do not improve, or if you have any other problems. Please contact your doctor or call one of the physicians/clinics you have been referred to that are listed on the Patient Visit Information form that is included in your discharge packet. Bring any paperwork you were given at discharge with you along with any medications you are taking to your follow up visit. Our treatment cannot replace ongoing medical care by a primary care provider outside of the emergency department. Thank you for allowing the [facility] team to be part of your care today. If you had an X-Ray or CT scan: A Radiologist will review the ED reading if any change in treatment is needed we will contact you. If you had a blood, urine, or wound culture: It will take several days for the results, if any change in treatment is needed we will contact you. If you had an STI test: It will take 48 hours for the results. Please call after 1 week if you have not heard back. Prescriptions: Tramadol HCl [Ultram] 50 mg PO BID PRN #10 tablet PRN Reason: Other Instructions: Chronic Knee Pain (DC) Forms: [employer] (Maltese)
[2018-09-13] MEDS ORDERED: Lidocaine 5% Patch TD ONE (14:36)
[2018-09-13] MEDS: Lidocaine 5% Patch TD STA (14:41)
[2018-09-13 15:51] VITALS: BP 110/62; PULSE 61; RESP 18; TEMP 98
[2018-09-13 17:46] VITALS: O2SAT 99
== END 2018-09-13 15:53 | disposition home or self-care (01) ==
LOC: H.ER 12:28
DX: M25.562 Pain in left knee (principal); E11.9 Type 2 diabetes mellitus without complications; E78.00 Pure hypercholesterolemia, unspecified; I10 Essential (primary) hypertension; Z79.01 Long term (current) use of anticoagulants